=== PATIENT | male | born 1950 | race Two or more races ===

== ENCOUNTER 2016-04-06 05:23 | Inpatient (IN) | payer OTHER ==
[~2016-04-06] VITALS: Ht 175.3 cm; Wt 113.6 kg
[2016-04-06] VITALS (24 sets, daily range): BP systolic 96–141; BP diastolic 58–100; PULSE 69–110; RESP 10–24; Ht 175.3 cm; Wt 113.6 kg
[~2016-04-06 05:23] MED LIST: AMLO5TAB4 PO; ATEN-51 PO; ATOR40TA68 PO; OMEP20CA16 PO; TAMS0.4C2 PO
[2016-04-06] MEDS: LACTATED RINGER'S 1,000 ML IV* SCH (06:30)
[2016-04-06] MEDS ORDERED: CEFAZOLIN 2 GM/50 ML (PMX) 50 ML IVPB SCH (06:30)
[2016-04-06] MEDS ORDERED: BUPIVACAINE 0.25%/EPI (SDV) 30 ML INJ ONE ×2 (07:20→10:49)
[2016-04-06] MEDS ORDERED: BUPIVACAINE 0.25% (MPF) 30 ML INJ ONE (07:20)
[2016-04-06] MEDS ORDERED: GELATIN SIZE 100 SPONGE ONE (07:20)
[2016-04-06] MEDS ORDERED: POLYMYXIN/BACITRACIN 1L IRRIG ONE (07:21)
[2016-04-06] MEDS ORDERED: THROMBIN 5000 UNIT VIAL ONE ×2 (07:21→12:00)
[2016-04-06] MEDS ORDERED: FENTAnyl 50 MCG/ML VIAL ONE ×2 (07:59→14:53)
[2016-04-06] MEDS ORDERED: SUCCINYLCHOLINE CHLORIDE 100 MG/5 ML SYG IV ONE (09:41)
[2016-04-06] MEDS ORDERED: PROPOFOL 40 ML ONE (09:41)
[2016-04-06] MEDS ORDERED: LIDOCAINE 2% (SDV) 5 ML INJ ONE (09:41)
[2016-04-06] MEDS ORDERED: ROCURONIUM 50 MG INJ ONE (09:41)
[2016-04-06] MEDS ORDERED: NEOSTIGMINE 3 MG/3 ML SYRINGE ONE (09:41)
[2016-04-06] MEDS ORDERED: GLYCOPYRROLATE 1 MG INJ ONE (09:41)
[2016-04-06] MEDS ORDERED: CEFAZOLIN 1 GM INJ ONE (09:41)
[2016-04-06] MEDS ORDERED: DIPHENHYDRAMINE 50 MG INJ IV PRN (11:00)
[2016-04-06] MEDS ORDERED: METOCLOPRAMIDE 10 MG INJ IV PRN (11:00)
[2016-04-06] MEDS ORDERED: ONDANSETRON 4 MG INJ IV PRN ×2 (11:00→16:30)
[2016-04-06] MEDS ORDERED: FENTAnyl 50 MCG/ML VIAL IV PRN (11:00)
[2016-04-06] MEDS ORDERED: HYDROmorphONE (0.2 MG/ML) 10ML SYG IV PRN ×2 (11:00)
[2016-04-06] MEDS ORDERED: MEPERIDINE 25 MG INJ IV PRN (11:00)
[2016-04-06] MEDS ORDERED: THROMBIN(HUM PLAS)/FIBRINOG/CA 5 ML VIAL TOP ONE (12:22)
[2016-04-06] MEDS: FENTAnyl 50 MCG/ML VIAL IV PRN ×2 (16:00→16:23)
[2016-04-06] MEDS: HYDROmorphONE (0.2 MG/ML) 10ML SYG IV PRN ×3 (16:02→16:28)
--- NOTE | 2016-04-06 16:21 | RADRPT ---
PROCEDURE: Intraoperative imaging of the lumbar spine with fluoroscopy. CLINICAL INDICATION: Back pain. Intraoperative. TECHNIQUE: 20 images of the lumbar spine were obtained in the operating room with an image intensi fier. No radiologist was in attendance. COMPARISON: No prior study is available for comparison. FINDINGS: Images demonstrate surgical instruments overlying the lower lumbar spine. IMPRESSION: 1. Intraoperative imaging of the lumbar spine. RPTAT: QQ .Jair Galindo MD, MD Date Time Electronically viewed and signed by .Jair Galindo MD, on 04/06/2016 16:21 .R/
[2016-04-06 16:22] LABS: ADD UMIC YES; URINE BILIRUBIN (Dip) NEGATIVE (NEGATIVE); URINE BLOOD (Dip) TRACE (NEGATIVE); URINE COLOR YELLOW (YELLOW); URINE GLUCOSE (Dip) NEGATIVE (NEGATIVE); URINE KETONES (Dip) NEGATIVE (NEGATIVE); URINE LEUKOCYTE ESTERASE (Dip) NEGATIVE (NEGATIVE); URINE NITRITE (Dip) NEGATIVE (NEGATIVE); URINE TOTAL PROTEIN (Dip) 1+ (NEGATIVE); URINE UROBILINOGEN (Dip) 0.2 E.U./dL (0.1-1.0)
[2016-04-06] MEDS ORDERED: HYDROCODONE/APAP (5/325) TAB PO PRN (16:30)
[2016-04-06] MEDS ORDERED: NALOXONE (0.4 MG/ML) INJ IV PRN (16:30)
[2016-04-06] MEDS ORDERED: PROCHLORPERAZINE 10 MG TAB PO PRN (16:30)
[2016-04-06] MEDS ORDERED: HYDROmorphONE 0.2 MG/ML PCA IV SCH ×2 (16:30→19:00)
[2016-04-06] MEDS ORDERED: NACL 0.9% 3 ML SYG IV SCH (16:30)
[2016-04-06 16:43] LABS: URINE RBCS 0-2 /HPF (0)
[2016-04-06 16:44] LABS: BACTERIA,URINE RARE
--- NOTE | 2016-04-06 17:56 | PN ---
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, reinforced need to push the button moves all four, lungs clear, heart rate is ok Musculoskeletal: back pain, bone/joint pain, neck pain, no complaints, other, restricted range of motion, swelling Exam/Review of Systems Vital Signs Vitals Vital Signs Date Time Temp Pulse Resp B/P Pulse Ox O2 Delivery O2 Flow Rate FiO2 04/06/16 16:58 94 14 122/72 95 Nasal Cannula 3.0 04/06/16 15:50 98.4 Results Results 24 hrs Laboratory Tests Test 04/06/16 15:53 Urine Bacteria RARE Urine Bilirubin NEGATIVE Urine Clarity CLEAR Urine Color YELLOW Urine Epithelial Cells OCCASIONAL Urine Glucose NEGATIVE Urine Hemoglobin TRACE Urine Ketones NEGATIVE Urine Leukocyte Esterase NEGATIVE Urine Microscopic RBC 0-2 Urine Microscopic WBC NONE SEEN Urine Nitrite NEGATIVE Urine Specific Home >=1.030 H Urine Total Protein 1+ H Urine Urobilinogen 0.2 E.U./dL Urine pH 6.0 Medications Medications Current Medications Lactated Ringer's (Lr) 1,000 ml @ 25 mls/hr Q24H IV* ; Start 04/06/16 at 06:30 Acetaminophen/ Hydrocodone Bitart ([place] (5/325)) 1 tab Q4H PRN PO PAIN LEVEL 1 -5; Start 04/06/16 at 16:30; Status Future Hold Acetaminophen/ Hydrocodone Bitart 2 tab 2 tab Q4H PRN PO PAIN LEVEL 6-10; Start 04/06/16 at 16:30; Status Future Hold Cefazolin Sodium (Ancef 1 Gm/50 ml (Pmx)) 50 ml @ 100 mls/hr Q6 IVPB ; Start at 18:00; Stop 04/07/16 at 12:29 Prochlorperazine (Compazine) 10 mg Q4H PRN PO NAUSEA AND/OR VOMITING; Start at 16:30 Ondansetron HCl (Zofran Inj) 4 mg Q6H PRN IV NAUSEA AND/OR VOMITING; Start at 16:30 Al Hydrox/Mg Hydrox/Simethicone (Mag-Al Plus) 15 ml Q4H PRN PO CONSTIPATION; Start 04/06/16 at 16:30 Docusate Sodium (Colace) 100 mg BID PO ; Start 04/07/16 at 09:00 Hydromorphone HCl (Dilaudid RADAR SYSTEMS ENGINEER) Q4PCA IV Last administered on 04/06/16t 16:32 ; Admin Dose 6 MG; Start 04/06/16 at 16:30 Naloxone HCl (Narcan) 0.2 mg Q2M PRN IV RR 8 BREATHS/MIN OR LESS; Start at 16:30 TROY MURPHY MD Apr 06, 2016 17:56
--- NOTE | 2016-04-06 18:06 | PN ---
Date/Time of Note Date/Time of Note DATE: 04/06/16 TIME: 18:03 Assessment/Plan VTE Prophylaxis VTE Prophylaxis Intervention: anti-embolic stocking Lines/Catheters IV Catheter Type (from Nrsg): Peripheral IV Urinary Cath still in place: Yes Subjective 24 Hr Interval Summary Free Text/Dictation note he has a porcine aortic valve without current CARDIAC SX, ATENOLOL continued, restart amlodipine if bp is high given preop antibiotics, which are continuing Exam/Review of Systems Vital Signs Vitals Vital Signs Date Time Temp Pulse Resp B/P Pulse Ox O2 Delivery O2 Flow Rate FiO2 04/06/16 16:58 94 14 122/72 95 Nasal Cannula 3.0 04/06/16 15:50 98.4 Results Results 24 hrs Laboratory Tests Test 04/06/16 15:53 Urine Bacteria RARE Urine Bilirubin NEGATIVE Urine Clarity CLEAR Urine Color YELLOW Urine Epithelial Cells OCCASIONAL Urine Glucose NEGATIVE Urine Hemoglobin TRACE Urine Ketones NEGATIVE Urine Leukocyte Esterase NEGATIVE Urine Microscopic RBC 0-2 Urine Microscopic WBC NONE SEEN Urine Nitrite NEGATIVE Urine Specific [place] >=1.030 H Urine Total Protein 1+ H Urine Urobilinogen 0.2 E.U./dL Urine pH 6.0 Medications Medications Current Medications Lactated Ringer's (Lr) 1,000 ml @ 25 mls/hr Q24H IV* ; Start 04/06/16 at 06:30 Acetaminophen/ Hydrocodone Bitart ([place] (5/325)) 1 tab Q4H PRN PO PAIN LEVEL 1 -5; Start 04/06/16 at 16:30; Status Future Hold Acetaminophen/ Hydrocodone Bitart 2 tab 2 tab Q4H PRN PO PAIN LEVEL 6-10; Start 04/06/16 at 16:30; Status Future Hold Cefazolin Sodium (Ancef 1 Gm/50 ml (Pmx)) 50 ml @ 100 mls/hr Q6 IVPB ; Start at 18:00; Stop 04/07/16 at 12:29 Prochlorperazine (Compazine) 10 mg Q4H PRN PO NAUSEA AND/OR VOMITING; Start at 16:30 Ondansetron HCl (Zofran Inj) 4 mg Q6H PRN IV NAUSEA AND/OR VOMITING; Start at 16:30 Al Hydrox/Mg Hydrox/Simethicone (Mag-Al Plus) 15 ml Q4H PRN PO CONSTIPATION; Start 04/06/16 at 16:30 Docusate Sodium (Colace) 100 mg BID PO ; Start 04/07/16 at 09:00 Hydromorphone HCl (Dilaudid PEGGER) Q4PCA IV Last administered on 04/06/16t 16:32 ; Admin Dose 6 MG; Start 04/06/16 at 16:30 Naloxone HCl (Narcan) 0.2 mg Q2M PRN IV RR 8 BREATHS/MIN OR LESS; Start at 16:30 TROY MURPHY MD Apr 06, 2016 18:06
--- NOTE | 2016-04-06 18:43 | EN ---
Date/Time of Note Date/Time of Note DATE: 04/06/16 TIME: 18:36 Event Note Surgery Surgery Event Note PRE OP DIAGNOSIS Spinal stenosis L3-S1 POST OP Same PROCEDURE Minimally invasive Laminectomies, L3-L4 right, L5-S1 right; L4-L5 left, three incisions. SURGEON David MERCHANDISE SHOPPER Clare EBL <25 cc COMPLICATION DUROTOMY SACRAL ROOT. No CSF leakage, but Duragen applied. EHSAN BLANK MD Apr 06, 2016 18:43
[2016-04-06] MEDS: CEFAZOLIN 1 GM/50 ML (PMX) 50 ML IVPB SCH ×2 (18:47→23:46)
--- NOTE | 2016-04-06 19:02 | EN ---
Date/Time of Note Date/Time of Note DATE: 04/06/16 TIME: 18:59 Event Note Surgery Surgery Event Note POST OP CHECK S: C/O PAIN IN LOW BACK O: PT in good spirits. Strength at ankles normal. No headache. A; Stable post op course P: 1. Will consider OOB for PT in AM if no headache. 2. Needs D/C and case management re: a. Patient lives alone and will need home care services when home. b. If unable to go home upon D/C family requesting SNF[facility]rehab in [facility]. EHSAN BLANK MD Apr 06, 2016 19:02
[2016-04-06] MEDS ORDERED: TAMSULOSIN (SR) 0.4 MG CAP PO SCH (21:00)
[2016-04-06] MEDS: HYDROmorphONE 0.2 MG/ML PCA IV SCH (22:24)
[2016-04-06] MEDS: CYCLOBENZAPRINE 10 MG TAB PO PRN (23:57)
[2016-04-07] MEDS ORDERED: PANTOPRAZOLE (EC) 40 MG TAB PO SCH (06:00)
[2016-04-07] MEDS: CEFAZOLIN 1 GM/50 ML (PMX) 50 ML IVPB SCH ×2 (06:00→12:46)
[2016-04-07 06:01] LABS: POTASSIUM 4.1 mmol/L (3.5-5.1)
[2016-04-07 06:10] LABS: CREATININE 0.61 mg/dl (0.61-1.24)
[2016-04-07 06:11] LABS: CALCIUM 8.7 mg/dl (8.4-10.2)
--- NOTE | 2016-04-07 06:19 | CONS ---
Date/Time of Note Date/Time of Note DATE: 04/07/16 TIME: 06:08 Assessment/Plan Assessment/Plan Additional Assessment/Plan IMPRESSION 1. L3-S1 spinal stenosis s/p minimally invasive Laminectomies 2. Headache 3. Hx of Aortic valve replacement 4. Hx of BPH 5. Obesity with BMI of 37 PLAN Cont pain mgmt Cont home meds with adjustment as needed when ok with surgery, start physical therapy check basic labs in am Wt loss advised Consultation Date/Type/Reason Admit Date/Time Apr 06, 2016 at 05:23 Hx of Present Illness Mr. Rcihey is a 65 yo male with hx of BPH, aortic valve replacement, back pain/ injury and L3-S1 spinal stenosis. Today he underwent minimally invasive Laminectomies(see operative report). He was complaining of back pain and headache. Consult was placed for medical mgmt. Currently his pain is being managed with TECHNICAL ASST pump. Denied chest pain, shortness of breath, N/V, fever, chills. . Musculoskeletal: back pain, bone/joint pain, neck pain, no complaints, other, restricted range of motion, swelling Social History Smoking Status: Former smoker Exam/Review of Systems Vital Signs Vitals Vital Signs Date Time Temp Pulse Resp B/P Pulse Ox O2 Delivery O2 Flow Rate FiO2 04/06/16 23:49 98.1 100 18 141/86 96 04/06/16 19:50 Nasal Cannula 2.0 Intake and Output 04/06/16 04/06/16 04/07/16 14:53 22:53 06:53 Intake Total 1800 ml Output Total 400 ml Balance 1400 ml Exam Constitutional: alert, obese, oriented Head: atraumatic, normocephalic Eyes: EOMI, PERRL Neck: supple Respiratory: clear to auscultation, normal air movement Cardiovascular: nl pulses, regular rate and rhythm Gastrointestinal: non-tender, soft Extremities: normal pulses Results Results 24 hrs Laboratory Tests Test 04/06/16 15:53 Urine Bacteria RARE Urine Bilirubin NEGATIVE Urine Clarity CLEAR Urine Color YELLOW Urine Epithelial Cells OCCASIONAL Urine Glucose NEGATIVE Urine Hemoglobin TRACE Urine Ketones NEGATIVE Urine Leukocyte Esterase NEGATIVE Urine Microscopic RBC 0-2 Urine Microscopic WBC NONE SEEN Urine Nitrite NEGATIVE Urine Specific [place] >=1.030 H Urine Total Protein 1+ H Urine Urobilinogen 0.2 E.U./dL Urine pH 6.0 Medications Medications Current Medications Lactated Ringer's (Lr) 1,000 ml @ 25 mls/hr Q24H IV* ; Start 04/06/16 at 06:30 Acetaminophen/ Hydrocodone Bitart ([place] (5/325)) 1 tab Q4H PRN PO PAIN LEVEL 1 -5; Start 04/06/16 at 16:30; Status Future Hold Acetaminophen/ Hydrocodone Bitart 2 tab 2 tab Q4H PRN PO PAIN LEVEL 6-10; Start 04/06/16 at 16:30; Status Future Hold Cefazolin Sodium (Ancef 1 Gm/50 ml (Pmx)) 50 ml @ 100 mls/hr Q6 IVPB Last administered on 04/06/16 23:46; Admin Dose 100 MLS/HR; Start 04/06/16 at 18:00 ; Stop 04/07/16 at 12:29 Prochlorperazine (Compazine) 10 mg Q4H PRN PO NAUSEA AND/OR VOMITING; Start at 16:30 Ondansetron HCl (Zofran Inj) 4 mg Q6H PRN IV NAUSEA AND/OR VOMITING; Start at 16:30 Al Hydrox/Mg Hydrox/Simethicone (Mag-Al Plus) 15 ml Q4H PRN PO CONSTIPATION; Start 04/06/16 at 16:30 Docusate Sodium (Colace) 100 mg BID PO ; Start 04/07/16 at 09:00 Naloxone HCl (Narcan) 0.2 mg Q2M PRN IV RR 8 BREATHS/MIN OR LESS; Start at 16:30 Pantoprazole (Protonix Tab) 40 mg DAILY@06 PO ; Start 04/07/16 at 06:00 Atenolol (Tenormin) 25 mg DAILY PO ; Start 04/07/16 at 09:00 Tamsulosin HCl (Flomax) 0.4 mg HS PO Last administered on 04/06/16 21:15; Admin Dose 0.4 MG; Start 04/06/16 at 21:00 Hydromorphone HCl (Dilaudid TECHNICAL ASST) Q4PCA IV Last administered on 04/06/16 22:24 ; Admin Dose 6 MG; Start 04/06/16 at 19:00 Cyclobenzaprine HCl (Flexeril) 10 mg TID PRN PO MUSCLE SPASMS Last administered on 1/16/17at 23:57; Admin Dose 10 MG; Start 04/06/16 at 22:00 ALICIA HOLT MD Apr 07, 2016 06:11
[2016-04-07 06:24] LABS: HEMATOCRIT 38.5 % (42.0-52.0); HEMOGLOBIN 13.1 g/dl (14.0-18.0)
[2016-04-07] MEDS: LACTATED RINGER'S 1,000 ML IV* SCH (06:30)
[2016-04-07 08:22] VITALS: BP 135/81; RESP 18
[2016-04-07] MEDS: DOCUSATE SODIUM 100 MG CAP PO SCH ×2 (08:53→21:31)
[2016-04-07] MEDS: ATENOLOL 25 MG TAB PO SCH (08:53)
[2016-04-07] MEDS: AMLODIPINE 5 MG TAB PO SCH (08:54)
[2016-04-07] MEDS: CYCLOBENZAPRINE 10 MG TAB PO PRN (08:54)
[2016-04-07] MEDS ORDERED: NON-FORMULARY/PATIENT OWN MED (Omeprazole* 20 MG) PO SCH (09:00)
[2016-04-07] MEDS: HYDROmorphONE 0.2 MG/ML PCA IV SCH ×2 (09:01→20:39)
[2016-04-07 20:51] VITALS: BP 138/74; RESP 20
[2016-04-07] MEDS ORDERED: VITAMIN A & D 5 GM OINT PACKET TOP ONE (21:10)
[2016-04-07] MEDS: TAMSULOSIN (SR) 0.4 MG CAP PO SCH (21:32)
[2016-04-07] MEDS: ATORVASTATIN 40 MG TAB PO SCH (21:32)
[2016-04-08] MEDS: PANTOPRAZOLE (EC) 40 MG TAB PO SCH (05:22)
[2016-04-08] MEDS: LACTATED RINGER'S 1,000 ML IV* SCH (05:22)
[2016-04-08 08:20] VITALS: BP 138/68; RESP 20
[2016-04-08] MEDS: HYDROmorphONE 0.2 MG/ML PCA IV SCH (08:31)
[2016-04-08] MEDS: DOCUSATE SODIUM 100 MG CAP PO SCH ×2 (08:31→19:53)
[2016-04-08] MEDS: AMLODIPINE 5 MG TAB PO SCH (08:32)
[2016-04-08] MEDS: ATENOLOL 25 MG TAB PO SCH (08:32)
[2016-04-08] MEDS: AL HYDROX/MG HYDROX/SIMETH 30 ML CUP PO PRN (14:24)
--- NOTE | 2016-04-08 14:33 | PN ---
Date/Time of Note Date/Time of Note DATE: 04/08/16 TIME: 14:28 Assessment/Plan VTE Prophylaxis VTE Prophylaxis Intervention: SCD's Lines/Catheters IV Catheter Type (from Nrsg): Peripheral IV Urinary Cath still in place: Yes Reason Cath still needed: other (indicate) Assessment/Plan Assessment/Plan 1. L3-S1 spinal stenosis s/p minimally invasive Laminectomies, stable, follow up with surgery and PT 2. s/p Aortic valve replacement, bioprosthetic, stable 3. Epigastric pain, protonix 4. Hx of BPH 5. Obesity with BMI of 3 Subjective 24 Hr Interval Summary Free Text/Dictation epigastric pain with some nausea, no vomiting Exam/Review of Systems Vital Signs Vitals Vital Signs Date Time Temp Pulse Resp B/P Pulse Ox O2 Delivery O2 Flow Rate FiO2 04/08/16 13:46 18 04/08/16 08:20 98.0 91 138/68 100 04/07/16 20:00 Nasal Cannula 2.0 Intake and Output 04/07/16 04/07/16 04/08/16 15:00 23:00 07:00 Intake Total 490 ml 700 ml Output Total 560 ml 1000 ml Balance -70 ml -300 ml Exam Constitutional: alert, oriented, well developed Psych: nl mood/affect, no complaints Head: atraumatic, normocephalic Eyes: EOMI, PERRL, nl conjunctiva, nl lids, nl sclera ENMT: mucosa pink and moist, nl external ears & nose, nl lips & teeth, nl nasal mucosa & septum Neck: non-tender, supple Respiratory: clear to auscultation, normal air movement Cardiovascular: nl pulses, regular rate and rhythm, No S3, No S4, No bruits, No diastolic murmur, No edema, No gallop, No irregular rhythm, No jugular venous distention (JVD), No murmurs/extra sounds, No rub, No systolic murmur Gastrointestinal: nl liver, spleen, soft, tender (mild epigastric tenderness), No ascites, No bowel sounds, No distended, No firm, No hepatomegaly, No mass , No rebound or guarding, No splenomegaly, No surgical scars Musculoskeletal: nl extremities to inspection Extremities: normal pulses, No calf tenderness, No clubbing, No cyanosis, No edema, No palpable cord, No pitting pedal edema, No tenderness Neurological: ASE MASTER MECHANIC II-XII intact, nl mental status, nl speech, nl strength Skin: nl turgor, rash or lesions Lymph: nl lymph nodes Results Result Diagram: 04/07/1641904/07/16419 Medications Medications Current Medications Lactated Ringer's (Lr) 1,000 ml @ 25 mls/hr Q24H IV* Last administered on 04/08 05:22; Admin Dose 25 MLS/HR; Start 04/06/16 at 06:30 Acetaminophen/ Hydrocodone Bitart ([place] (5/325)) 1 tab Q4H PRN PO PAIN LEVEL 1 -5; Start 04/06/16 at 16:30; Status Future Hold Acetaminophen/ Hydrocodone Bitart ([place] (5/325)) 2 tab Q4H PRN PO PAIN LEVEL 6 -10; Start 04/06/16 at 16:30; Status Future Hold Prochlorperazine (Compazine) 10 mg Q4H PRN PO NAUSEA AND/OR VOMITING; Start at 16:30 Ondansetron HCl (Zofran Inj) 4 mg Q6H PRN IV NAUSEA AND/OR VOMITING; Start at 16:30 Al Hydrox/Mg Hydrox/Simethicone (Mag-Al Plus) 15 ml Q4H PRN PO CONSTIPATION Last administered on 04/08/16 14:24; Admin Dose 15 ML; Start 04/06/16 at 16:30 Docusate Sodium (Colace) 100 mg BID PO Last administered on 04/08/16 08:31; Admin Dose 100 MG; Start 04/07/16 at 09:00 Naloxone HCl (Narcan) 0.2 mg Q2M PRN IV RR 8 BREATHS/MIN OR LESS; Start at 16:30 Atenolol (Tenormin) 25 mg DAILY PO Last administered on 04/08/16 08:32; Admin Dose 25 MG; Start 04/07/16 at 09:00 Hydromorphone HCl (Dilaudid SUPERVISOR GARMENT MANUFACTURING) Q4PCA IV Last administered on 04/08/16 08:31 ; Admin Dose 6 MG; Start 04/06/16 at 19:00 Cyclobenzaprine HCl (Flexeril) 10 mg TID PRN PO MUSCLE SPASMS Last administered on 04/07/16 08:54; Admin Dose 10 MG; Start 04/06/16 at 22:00 Amlodipine Besylate (Norvasc) 5 mg DAILY PO Last administered on 04/08/16 08: 32; Admin Dose 5 MG; Start 04/07/16 at 09:00 Atorvastatin Calcium (Lipitor) 40 mg QHS PO Last administered on 04/07/16 21: 32; Admin Dose 40 MG; Start 04/07/16 at 21:00 Pantoprazole (Protonix Tab) 40 mg DAILY@06 PO Last administered on 04/08/16 05 :22; Admin Dose 40 MG; Start 04/08/16 at 06:00 Tamsulosin HCl (Flomax) 0.8 mg HS PO Last administered on 04/07/16 21:32; Admin Dose 0.8 MG; Start 04/07/16 at 21:00 HARJINDER STAHL MD Apr 08, 2016 14:33
[2016-04-08 14:49] VITALS: BP 127/59; RESP 20
[2016-04-08] MEDS: CALCIUM CARBONATE 500 MG CHEW TAB PO PRN (16:23)
--- NOTE | 2016-04-08 17:16 | PN ---
Date/Time of Note Date/Time of Note DATE: 04/08/16 TIME: 17:11 Assessment/Plan VTE Prophylaxis VTE Prophylaxis Intervention: anti-embolic stocking Lines/Catheters IV Catheter Type (from Nrsg): Peripheral IV Urinary Cath still in place: Yes Subjective 24 Hr Interval Summary Free Text/Dictation third post opday, some nausea and reflux sx says only awake lungs clear, hr ok abd distended poor bs ppi that works is omeprazole, may take from home no bm yet cathete rstill in up with therapy standing only may have ileus from effects of surgery and the narcotics Gastrointestinal: constipation, decreased appetite, nausea, vomiting Exam/Review of Systems Vital Signs Vitals Vital Signs Date Time Temp Pulse Resp B/P Pulse Ox O2 Delivery O2 Flow Rate FiO2 04/08/16 14:49 98.4 83 20 127/59 95 04/07/16 20:00 Nasal Cannula 2.0 Intake and Output 04/07/16 04/07/16 04/08/16 14:59 22:59 06:59 Intake Total 490 ml 700 ml Output Total 560 ml 1000 ml Balance -70 ml -300 ml Results Result Diagram: 04/07/16 0420 04/07/16 0420 Medications Medications Current Medications Lactated Ringer's (Lr) 1,000 ml @ 25 mls/hr Q24H IV* Last administered on 04/08 05:22; Admin Dose 25 MLS/HR; Start 04/06/16 at 06:30 Acetaminophen/ Hydrocodone Bitart ([place] (5/325)) 1 tab Q4H PRN PO PAIN LEVEL 1 -5; Start 04/06/16 at 16:30; Status Future Hold Acetaminophen/ Hydrocodone Bitart ([place] (5/325)) 2 tab Q4H PRN PO PAIN LEVEL 6 -10; Start 04/06/16 at 16:30; Status Future Hold Prochlorperazine (Compazine) 10 mg Q4H PRN PO NAUSEA AND/OR VOMITING; Start at 16:30 Ondansetron HCl (Zofran Inj) 4 mg Q6H PRN IV NAUSEA AND/OR VOMITING; Start at 16:30 Al Hydrox/Mg Hydrox/Simethicone (Mag-Al Plus) 15 ml Q4H PRN PO CONSTIPATION Last administered on 04/08/16 14:24; Admin Dose 15 ML; Start 04/06/16 at 16:30 Docusate Sodium (Colace) 100 mg BID PO Last administered on 04/08/16 08:31; Admin Dose 100 MG; Start 04/07/16 at 09:00 Naloxone HCl (Narcan) 0.2 mg Q2M PRN IV RR 8 BREATHS/MIN OR LESS; Start at 16:30 Atenolol (Tenormin) 25 mg DAILY PO Last administered on 04/08/16 08:32; Admin Dose 25 MG; Start 04/07/16 at 09:00 Hydromorphone HCl (Dilaudid ARMATURE CONNECTOR) Q4PCA IV Last administered on 04/08/16 08:31 ; Admin Dose 6 MG; Start 04/06/16 at 19:00 Cyclobenzaprine HCl (Flexeril) 10 mg TID PRN PO MUSCLE SPASMS Last administered on 04/07/16 08:54; Admin Dose 10 MG; Start 04/06/16 at 22:00 Amlodipine Besylate (Norvasc) 5 mg DAILY PO Last administered on 04/08/16 08: 32; Admin Dose 5 MG; Start 04/07/16 at 09:00 Atorvastatin Calcium (Lipitor) 40 mg QHS PO Last administered on 04/07/16 21: 32; Admin Dose 40 MG; Start 04/07/16 at 21:00 Pantoprazole (Protonix Tab) 40 mg DAILY@06 PO Last administered on 04/08/16 05 :22; Admin Dose 40 MG; Start 04/08/16 at 06:00 Tamsulosin HCl (Flomax) 0.8 mg HS PO Last administered on 04/07/16 21:32; Admin Dose 0.8 MG; Start 04/07/16 at 21:00 Calcium Carbonate (Tums) 500 mg Q8 PRN PO HEARTBURN Last administered on 16:23; Admin Dose 500 MG; Start 04/08/16 at 16:00 TROY MURPHY MD Apr 08, 2016 17:16
[2016-04-08] MEDS ORDERED: METOCLOPRAMIDE 10 MG INJ IV ONE (17:30)
--- NOTE | 2016-04-08 17:41 | EN ---
Date/Time of Note Date/Time of Note DATE: 04/08/16 TIME: 17:40 Event Note Surgery Surgery Event Note Date/Time of Note Date/Time of Note DATE: 04/08/16 TIME: 09:07 Event Note Surgery Surgery Event Note POD 2 ORTHOPAEDIC SPINE Seen with RN S: Still c/o back ache, without leg pain. No headache. No other complaints. O: Alert, oriented, minimal distress. Eating sollid breakfast. Ankle motor strength normal. Dressing dry, intact, minimal stain A: Satisfactory post op course. Mobilization slightly slow but as expected for 3 level decompression P: 1. PT attempt ambulation. 2. Medical team: Continues to require pain meds and antibiotics re valve as long as medical team says indicated. 3. ELOS 48 hours. 4. Possible dispo to rehab facility near home ([place]) EHSAN STANTON MD Apr 08, 2016 09:12 EHSAN STANTON MD Apr 08, 2016 17:40
[2016-04-08] MEDS ORDERED: VITAMIN A & D 5 GM OINT PACKET TOP ONE (18:59)
[2016-04-08] MEDS: [UNRECOGNIZED DRUG - REMARK] XX SCH (19:00)
[2016-04-08 19:34] VITALS: BP 135/65; RESP 22
[2016-04-08] MEDS: CYCLOBENZAPRINE 10 MG TAB PO PRN (19:53)
[2016-04-08] MEDS: TAMSULOSIN (SR) 0.4 MG CAP PO SCH (19:53)
[2016-04-08] MEDS: ATORVASTATIN 40 MG TAB PO SCH (19:53)
[2016-04-09] MEDS: HYDROmorphONE 0.2 MG/ML PCA IV SCH (00:47)
[2016-04-09] MEDS: [UNRECOGNIZED DRUG - REMARK] XX SCH ×2 (02:12→10:46)
[2016-04-09] MEDS: PANTOPRAZOLE (EC) 40 MG TAB PO SCH (04:58)
[2016-04-09] MEDS: CYCLOBENZAPRINE 10 MG TAB PO PRN ×2 (04:58→14:02)
[2016-04-09 05:25] LABS: BASOPHILS % 0.2 % (0.0-2.0); EOSINOPHILS # 0.1 10^3/ul (0.0-0.5); EOSINOPHILS % 0.7 % (0.0-7.0); HEMATOCRIT 31.7 % (42.0-52.0); HEMOGLOBIN 10.9 g/dl (14.0-18.0); LYMPHOCYTES % 10.9 % (15.0-51.0); MEAN CORPUSCULAR HEMOGLOBIN 31.1 pg (29.0-33.0); MEAN CORPUSCULAR HGB CONC 34.5 g/dl (32.0-37.0); MEAN CORPUSCULAR VOLUME 90.1 fl (82.0-101.0); MEAN PLATELET VOLUME 8.5 fl (7.4-10.4); MONOCYTE # 0.7 10^3/ul (0.3-0.9); NEUTROPHIL # 7.6 10^3/ul (1.6-7.5); NEUTROPHILS % 81.2 % (39.0-77.0); PLATELET COUNT 134 10^3/UL (140-440); RED BLOOD COUNT 3.52 10^6/ul (4.70-6.10); RED CELL DISTRIBUTION WIDTH 12.8 % (11.5-14.5); UNCORRECTED WBC 9.4 10^3/ul (4.8-10.8); WHITE BLOOD COUNT 9.4 10^3/ul (4.8-10.8)
[2016-04-09 05:38] LABS: CONDITION 1
[2016-04-09 05:47] LABS: POTASSIUM 3.8 mmol/L (3.5-5.1)
[2016-04-09 05:49] LABS: CREATININE 0.52 mg/dl (0.61-1.24)
[2016-04-09 05:51] LABS: CALCIUM 8.4 mg/dl (8.4-10.2)
[2016-04-09] MEDS: LACTATED RINGER'S 1,000 ML IV* SCH (06:30)
[2016-04-09 08:48] VITALS: BP 129/70; RESP 21
[2016-04-09] MEDS: DOCUSATE SODIUM 100 MG CAP PO SCH ×2 (08:53→20:21)
[2016-04-09] MEDS: ATENOLOL 25 MG TAB PO SCH (08:54)
[2016-04-09] MEDS: AMLODIPINE 5 MG TAB PO SCH (08:54)
[2016-04-09] MEDS ORDERED: OMEPRAZOLE 20 MG PO SCH (09:00)
[2016-04-09] MEDS ORDERED: OXYCODONE/ACETAMINOPHEN (10/325) TAB PO PRN (11:30)
--- NOTE | 2016-04-09 13:12 | PN ---
Date/Time of Note Date/Time of Note DATE: 04/09/16 TIME: 13:10 Assessment/Plan Lines/Catheters IV Catheter Type (from Nrsg): Peripheral IV Victor in Place (from Nrsg): Yes Subjective 24 Hr Interval Summary Patient is progressing slowly postoperatively. He continues to report intense low back pain, he states his legs are feeling better. Neurovascular structures are intact. Discussed the importance of weaning off of his MATTING PRESS TENDER, we will wean off his MATTING PRESS TENDER and start PO pain meds . Patient also reports constipation, weaning off the MATTING PRESS TENDER will help this. I did order a bowel program. I asked telephonic case manager to arrange for short-term rehab postoperatively due to his slow progress. We will also remove Victor catheter when he is up ambulating. His hemoglobin is 10.9 today. Exam/Review of Systems Vital Signs Vitals Vital Signs Date Time Temp Pulse Resp B/P Pulse Ox O2 Delivery O2 Flow Rate FiO2 04/09/16 08:48 98.4 90 21 129/70 95 04/07/16 20:00 Nasal Cannula 2.0 Intake and Output 04/08/16 04/08/16 04/09/16 15:00 23:00 07:00 Intake Total 134 ml 1200 ml Output Total 450 ml 600 ml Balance -316 ml 600 ml Results Result Diagram: 04/09/16 0445 04/09/16 0445 BLAKE BATISTA Apr 09, 2016 13:12
[2016-04-09] MEDS: SENNA/DOCUSATE NA (8.6MG/50MG) TAB PO PRN (14:02)
--- NOTE | 2016-04-09 14:15 | PN ---
Date/Time of Note Date/Time of Note DATE: 04/09/16 TIME: 14:13 Assessment/Plan VTE Prophylaxis VTE Prophylaxis Intervention: SCD's Lines/Catheters IV Catheter Type (from Nrsg): Peripheral IV Urinary Cath still in place: Yes Reason Cath still needed: urinary retention Assessment/Plan Assessment/Plan 1. L3-S1 spinal stenosis s/p minimally invasive Laminectomies, stable, follow up with surgery and PT 2. s/p Aortic valve replacement, bioprosthetic, stable 3. Epigastric pain, better on protonix 4. Hx of BPH 5. Obesity with BMI of 3 Subjective 24 Hr Interval Summary Free Text/Dictation back pain, not able to get out of bed, wants to keep Victor Exam/Review of Systems Vital Signs Vitals Vital Signs Date Time Temp Pulse Resp B/P Pulse Ox O2 Delivery O2 Flow Rate FiO2 04/09/16 08:48 98.4 90 21 129/70 95 04/07/16 20:00 Nasal Cannula 2.0 Intake and Output 04/08/16 04/08/16 04/09/16 15:00 23:00 07:00 Intake Total 134 ml 1200 ml Output Total 450 ml 600 ml Balance -316 ml 600 ml Exam Constitutional: alert, oriented, well developed Psych: nl mood/affect, no complaints Head: atraumatic, normocephalic Eyes: EOMI, PERRL, nl conjunctiva, nl lids, nl sclera ENMT: mucosa pink and moist, nl external ears & nose, nl lips & teeth, nl nasal mucosa & septum Neck: non-tender, supple Respiratory: clear to auscultation, normal air movement, No congested cough, No crackles/rales, No diminished breath sounds, No intercostal retraction, No labored breathing, No respirations, No tactile fremitus, No wheezing Cardiovascular: nl pulses, regular rate and rhythm, No S3, No S4, No bruits, No diastolic murmur, No edema, No gallop, No irregular rhythm, No jugular venous distention (JVD), No murmurs/extra sounds, No rub, No systolic murmur Gastrointestinal: nl liver, spleen, non-tender, soft, No ascites, No bowel sounds, No distended, No firm, No hepatomegaly, No mass , No rebound or guarding, No splenomegaly, No surgical scars, No tender Musculoskeletal: nl extremities to inspection Extremities: normal pulses, other, No calf tenderness, No clubbing, No cyanosis, No edema, No palpable cord, No pitting pedal edema, No tenderness 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, nl mental status, nl speech, nl strength Skin: nl turgor, rash or lesions Lymph: nl lymph nodes Results Result Diagram: 04/09/165 04/09/165 Results 24 hrs Laboratory Tests Test 04/09/16 04:45 Anion Gap 12 Basophils # 0.0 Basophils % 0.2 Blood Urea Nitrogen 13 Calcium Level 8.4 Carbon Dioxide Level 34 H Chloride Level 92 L Creatinine 0.52 L Eosinophils # 0.1 Eosinophils % 0.7 Glucose Level 116 Hematocrit 31.7 L Hemoglobin 10.9 L Lymphocytes # 1.0 Lymphocytes % 10.9 L Mean Corpuscular Hemoglobin 31.1 Mean Corpuscular Hemoglobin Concent 34.5 Mean Corpuscular Volume 90.1 Mean Platelet Volume 8.5 Monocytes # 0.7 Monocytes % 7.0 Neutrophils # 7.6 H Neutrophils % 81.2 H Nucleated Red Blood Cells # 0.0 Nucleated Red Blood Cells % 0.0 Platelet Count 134 L Potassium Level 3.8 Red Blood Count 3.52 L Red Cell Distribution Width 12.8 Sodium Level 134 L White Blood Count 9.4 Medications Medications Current Medications Lactated Ringer's (Lr) 1,000 ml @ 25 mls/hr Q24H IV* Last administered on 04/08t 05:22; Admin Dose 25 MLS/HR; Start 04/06/16 at 06:30 Acetaminophen/ Hydrocodone Bitart ([place] (5/325)) 1 tab Q4H PRN PO PAIN LEVEL 1 -5; Start 04/06/16 at 16:30; Status Future hold Acetaminophen/ Hydrocodone Bitart ([place] (5/325)) 2 tab Q4H PRN PO PAIN LEVEL 6 -10; Start 04/06/16 at 16:30; Status Future hold Prochlorperazine (Compazine) 10 mg Q4H PRN PO NAUSEA AND/OR VOMITING; Start at 16:30 Ondansetron HCl (Zofran Inj) 4 mg Q6H PRN IV NAUSEA AND/OR VOMITING; Start at 16:30 Al Hydrox/Mg Hydrox/Simethicone (Mag-Al Plus) 15 ml Q4H PRN PO CONSTIPATION Last administered on 04/08/16 14:24; Admin Dose 15 ML; Start 04/06/16 at 16:30 Docusate Sodium (Colace) 100 mg BID PO Last administered on 04/09/16 08:53; Admin Dose 100 MG; Start 04/07/16 at 09:00 Naloxone HCl (Narcan) 0.2 mg Q2M PRN IV RR 8 BREATHS/MIN OR LESS; Start at 16:30 Atenolol (Tenormin) 25 mg DAILY PO Last administered on 04/09/16 08:54; Admin Dose 25 MG; Start 04/07/16 at 09:00 Cyclobenzaprine HCl (Flexeril) 10 mg TID PRN PO MUSCLE SPASMS Last administered on 04/09/16 14:02; Admin Dose 10 MG; Start 04/06/16 at 22:00 Amlodipine Besylate (Norvasc) 5 mg DAILY PO Last administered on 04/09/16 08: 54; Admin Dose 5 MG; Start 04/07/16 at 09:00 Atorvastatin Calcium (Lipitor) 40 mg QHS PO Last administered on 04/08/16 19: 53; Admin Dose 40 MG; Start 04/07/16 at 21:00 Pantoprazole (Protonix Tab) 40 mg DAILY@06 PO Last administered on 04/09/16 04 :58; Admin Dose 40 MG; Start 04/08/16 at 06:00 Tamsulosin HCl (Flomax) 0.8 mg HS PO Last administered on 04/08/16 19:53; Admin Dose 0.8 MG; Start 04/07/16 at 21:00 Calcium Carbonate (Tums) 500 mg Q8 PRN PO HEARTBURN Last administered on 16:23; Admin Dose 500 MG; Start 04/08/16 at 16:00 Oxycodone/ Acetaminophen (Endocet (10/ 325)) 1 tab Q4H PRN PO PAIN; Start 04/09 at 11:30 Senna/Docusate Sodium (Senokot-S) 1 tab BID PRN PO constipation Last administered on 04/09/16 14:02; Admin Dose 1 TAB; Start 04/09/16 at 13:30 HARJINDER STAHL MD Apr 09, 2016 14:15
[2016-04-09] MEDS: HYDROCODONE/APAP (5/325) TAB PO PRN ×2 (16:36→23:13)
[2016-04-09 19:54] VITALS: BP 124/70; RESP 20
[2016-04-09] MEDS: TAMSULOSIN (SR) 0.4 MG CAP PO SCH (20:21)
[2016-04-09] MEDS: ATORVASTATIN 40 MG TAB PO SCH (20:21)
[2016-04-10] MEDS: SENNA/DOCUSATE NA (8.6MG/50MG) TAB PO PRN ×2 (01:55→10:18)
[2016-04-10] MEDS: CYCLOBENZAPRINE 10 MG TAB PO PRN ×2 (01:55→20:53)
[2016-04-10] MEDS: HYDROCODONE/APAP (5/325) TAB PO PRN ×5 (05:11→22:09)
[2016-04-10 05:40] LABS: POTASSIUM 3.5 mmol/L (3.5-5.1)
[2016-04-10 05:43] LABS: CREATININE 0.48 mg/dl (0.61-1.24)
[2016-04-10 05:44] LABS: CALCIUM 8.2 mg/dl (8.4-10.2)
[2016-04-10] MEDS ORDERED: OMEPRAZOLE 20 MG PO SCH (06:00)
[2016-04-10] MEDS: LACTATED RINGER'S 1,000 ML IV* SCH (06:30)
[2016-04-10 08:00] VITALS: BP 130/62; RESP 21
[2016-04-10] MEDS: ATENOLOL 25 MG TAB PO SCH (08:42)
[2016-04-10] MEDS: AMLODIPINE 5 MG TAB PO SCH (08:43)
[2016-04-10] MEDS: DOCUSATE SODIUM 100 MG CAP PO SCH ×2 (08:45→20:46)
[2016-04-10] MEDS: OMEPRAZOLE PO SCH (09:02)
--- NOTE | 2016-04-10 13:27 | PN ---
Date/Time of Note Date/Time of Note DATE: 04/10/16 TIME: 13:25 Assessment/Plan Lines/Catheters IV Catheter Type (from Nrsg): Saline Lock Victor in Place (from Nrsg): Yes Subjective 24 Hr Interval Summary Patient is currently working with physical therapy, case management is also assisting with short-term rehab placement. Patient does have home health approved for 2-3 hours a day twice a day once he is eventually discharged home. He just weaned off the CLOTH DOFFER and still reports moderate incisional pain . His vital signs are stable. Exam/Review of Systems Vital Signs Vitals Vital Signs Date Time Temp Pulse Resp B/P Pulse Ox O2 Delivery O2 Flow Rate FiO2 04/10/16 08:00 97.9 85 21 130/62 98 04/07/16 20:00 Nasal Cannula 2.0 Intake and Output 04/09/16 04/09/16 04/10/16 14:59 22:59 06:59 Intake Total 2400 ml 1300 ml Output Total 800 ml 1100 ml Balance 1600 ml 200 ml Results Result Diagram: 04/09/16 0445 04/10/16 0435 BLAKE BATISTA Apr 10, 2016 13:27
--- NOTE | 2016-04-10 13:37 | PN ---
Date/Time of Note Date/Time of Note DATE: 04/10/16 TIME: 13:29 Assessment/Plan VTE Prophylaxis VTE Prophylaxis Intervention: SCD's Lines/Catheters IV Catheter Type (from Nrsg): Saline Lock Assessment/Plan Assessment/Plan 1. 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 s/p Aortic valve replacement, bioprosthetic, stable 3. Epigastric pain, better on protonix 4. Hypertension, stable 5. Dyslipidemia, on statin 6. BPH, on flomax, d/c Victor 7. Obesity with BMI of 3 Subjective 24 Hr Interval Summary Free Text/Dictation low back pain, no weakness or pain on lower extremities. Talked to patient about removing Victor, he agrees Exam/Review of Systems Vital Signs Vitals Vital Signs Date Time Temp Pulse Resp B/P Pulse Ox O2 Delivery O2 Flow Rate FiO2 04/10/16 08:00 97.9 85 21 130/62 98 04/07/16 20:00 Nasal Cannula 2.0 Intake and Output 04/09/16 04/09/16 04/10/16 15:00 23:00 07:00 Intake Total 2400 ml 1300 ml Output Total 800 ml 1100 ml Balance 1600 ml 200 ml Exam Constitutional: alert, oriented, well developed Psych: nl mood/affect, no complaints Head: atraumatic, normocephalic Eyes: EOMI, PERRL, nl conjunctiva, nl lids, nl sclera ENMT: mucosa pink and moist, nl external ears & nose, nl lips & teeth, nl nasal mucosa & septum Neck: non-tender, supple Respiratory: clear to auscultation, normal air movement, No congested cough, No crackles/rales, No diminished breath sounds, No intercostal retraction, No labored breathing, No respirations, No tactile fremitus, No wheezing Cardiovascular: nl pulses, regular rate and rhythm, No S3, No S4, No bruits, No diastolic murmur, No edema, No gallop, No irregular rhythm, No jugular venous distention (JVD), No murmurs/extra sounds, No rub, No systolic murmur Gastrointestinal: nl liver, spleen, non-tender, soft, No ascites, No bowel sounds, No distended, No firm, No hepatomegaly, No mass , No rebound or guarding, No splenomegaly, No surgical scars, No tender Musculoskeletal: nl extremities to inspection Extremities: normal pulses, No calf tenderness, No clubbing, No cyanosis, No edema, No palpable cord, No pitting pedal edema, No tenderness 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, nl mental status, nl speech, nl strength Skin: nl turgor, rash or lesions Lymph: nl lymph nodes Results Result Diagram: 04/09/16 0445 04/10/16 0435 Results 24 hrs Laboratory Tests Test 04/10/16 04:35 Anion Gap 13 Blood Urea Nitrogen 12 Calcium Level 8.2 L Carbon Dioxide Level 31 Chloride Level 91 L Creatinine 0.48 L Glucose Level 107 Potassium Level 3.5 Sodium Level 131 L Medications Medications Current Medications Lactated Ringer's (Lr) 1,000 ml @ 25 mls/hr Q24H IV* Last administered on 04/08 05:22; Admin Dose 25 MLS/HR; Start 04/06/16 at 06:30 Acetaminophen/ Hydrocodone Bitart ([place] (5/325)) 1 tab Q4H PRN PO PAIN LEVEL 1 -5; Start 04/06/16 at 16:30; Status Future hold Acetaminophen/ Hydrocodone Bitart ([place] (5/325)) 2 tab Q4H PRN PO PAIN LEVEL 6 -10 Last administered on 04/10/16 10:18; Admin Dose 2 TAB; Start 04/06/16 at 16 :30; Status Future hold Prochlorperazine (Compazine) 10 mg Q4H PRN PO NAUSEA AND/OR VOMITING; Start at 16:30 Ondansetron HCl (Zofran Inj) 4 mg Q6H PRN IV NAUSEA AND/OR VOMITING; Start at 16:30 Al Hydrox/Mg Hydrox/Simethicone (Mag-Al Plus) 15 ml Q4H PRN PO CONSTIPATION Last administered on 04/08/16 14:24; Admin Dose 15 ML; Start 04/06/16 at 16:30 Docusate Sodium (Colace) 100 mg BID PO Last administered on 04/10/16 08:45; Admin Dose 100 MG; Start 04/07/16 at 09:00 Naloxone HCl (Narcan) 0.2 mg Q2M PRN IV RR 8 BREATHS/MIN OR LESS; Start at 16:30 Atenolol (Tenormin) 25 mg DAILY PO Last administered on 04/10/16 08:42; Admin Dose 25 MG; Start 04/07/16 at 09:00 Cyclobenzaprine HCl (Flexeril) 10 mg TID PRN PO MUSCLE SPASMS Last administered on 04/10/16 01:55; Admin Dose 10 MG; Start 04/06/16 at 22:00 Amlodipine Besylate (Norvasc) 5 mg DAILY PO Last administered on 04/10/16 08: 43; Admin Dose 5 MG; Start 04/07/16 at 09:00 Atorvastatin Calcium (Lipitor) 40 mg QHS PO Last administered on 04/09/16 20: 21; Admin Dose 40 MG; Start 04/07/16 at 21:00 Tamsulosin HCl (Flomax) 0.8 mg HS PO Last administered on 04/09/16 20:21; Admin Dose 0.8 MG; Start 04/07/16 at 21:00 Calcium Carbonate (Tums) 500 mg Q8 PRN PO HEARTBURN Last administered on 16:23; Admin Dose 500 MG; Start 04/08/16 at 16:00 Oxycodone/ Acetaminophen (Endocet (10/ 325)) 1 tab Q4H PRN PO PAIN Last administered on 04/09/16 20:23; Admin Dose 1 TAB; Start 04/09/16 at 11:30 Senna/Docusate Sodium (Senokot-S) 1 tab BID PRN PO constipation Last administered on 04/10/16 10:18; Admin Dose 1 TAB; Start 04/09/16 at 13:30 Patient Own Medication 1 ea DAILY PO Last administered on 04/10/16 09:02; Admin Dose 1 EA; Start 04/10/16 at 09:00 HARJINDER STAHL MD Apr 10, 2016 13:37
[2016-04-10 16:26] VITALS: BP 135/72; PULSE 79; RESP 18
[2016-04-10] MEDS: CALCIUM CARBONATE 500 MG CHEW TAB PO PRN (16:32)
--- NOTE | 2016-04-10 17:25 | PN ---
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 MANAGER CONSILT PLACED, NOT ARU CANDIDATE Exam/Review of Systems Vital Signs Vitals Vital Signs Date Time Temp Pulse Resp B/P Pulse Ox O2 Delivery O2 Flow Rate FiO2 04/10/16 16:26 97.2 79 18 135/72 97 Nasal Cannula 2.0 Intake and Output 04/09/16 04/09/16 04/10/16 15:00 23:00 07:00 Intake Total 2400 ml 1300 ml Output Total 800 ml 1100 ml Balance 1600 ml 200 ml Results Result Diagram: 04/09/16 0445 04/10/16 0435 Results 24 hrs Laboratory Tests Test 04/10/16 04:35 Anion Gap 13 Blood Urea Nitrogen 12 Calcium Level 8.2 L Carbon Dioxide Level 31 Chloride Level 91 L Creatinine 0.48 L Glucose Level 107 Potassium Level 3.5 Sodium Level 131 L Medications Medications Current Medications Lactated Ringer's (Lr) 1,000 ml @ 25 mls/hr Q24H IV* Last administered on 04/08 05:22; Admin Dose 25 MLS/HR; Start 04/06/16 at 06:30 Acetaminophen/ Hydrocodone Bitart ([place] (5/325)) 1 tab Q4H PRN PO PAIN LEVEL 1 -5; Start 04/06/16 at 16:30; Status Future hold Acetaminophen/ Hydrocodone Bitart ([place] (5/325)) 2 tab Q4H PRN PO PAIN LEVEL 6 -10 Last administered on 04/10/16 14:07; Admin Dose 2 TAB; Start 04/06/16 at 16 :30; Status Future hold Prochlorperazine (Compazine) 10 mg Q4H PRN PO NAUSEA AND/OR VOMITING; Start at 16:30 Ondansetron HCl (Zofran Inj) 4 mg Q6H PRN IV NAUSEA AND/OR VOMITING; Start at 16:30 Al Hydrox/Mg Hydrox/Simethicone (Mag-Al Plus) 15 ml Q4H PRN PO CONSTIPATION Last administered on 04/08/16 14:24; Admin Dose 15 ML; Start 04/06/16 at 16:30 Docusate Sodium (Colace) 100 mg BID PO Last administered on 04/10/16 08:45; Admin Dose 100 MG; Start 04/07/16 at 09:00 Naloxone HCl (Narcan) 0.2 mg Q2M PRN IV RR 8 BREATHS/MIN OR LESS; Start at 16:30 Atenolol (Tenormin) 25 mg DAILY PO Last administered on 04/10/16 08:42; Admin Dose 25 MG; Start 04/07/16 at 09:00 Cyclobenzaprine HCl (Flexeril) 10 mg TID PRN PO MUSCLE SPASMS Last administered on 04/10/16 01:55; Admin Dose 10 MG; Start 04/06/16 at 22:00 Amlodipine Besylate (Norvasc) 5 mg DAILY PO Last administered on 04/10/16 08: 43; Admin Dose 5 MG; Start 04/07/16 at 09:00 Atorvastatin Calcium (Lipitor) 40 mg QHS PO Last administered on 04/09/16 20: 21; Admin Dose 40 MG; Start 04/07/16 at 21:00 Tamsulosin HCl (Flomax) 0.8 mg HS PO Last administered on 04/09/16 20:21; Admin Dose 0.8 MG; Start 04/07/16 at 21:00 Calcium Carbonate (Tums) 500 mg Q8 PRN PO HEARTBURN Last administered on 16:32; Admin Dose 500 MG; Start 04/08/16 at 16:00 Oxycodone/ Acetaminophen (Endocet (10/ 325)) 1 tab Q4H PRN PO PAIN Last administered on 04/09/16 20:23; Admin Dose 1 TAB; Start 04/09/16 at 11:30 Senna/Docusate Sodium (Senokot-S) 1 tab BID PRN PO constipation Last administered on 04/10/16 10:18; Admin Dose 1 TAB; Start 04/09/16 at 13:30 Patient Own Medication 1 ea DAILY PO Last administered on 04/10/16t 09:02; Admin Dose 1 EA; Start 04/10/16 at 09:00 TROY MURPHY MD Apr 10, 2016 17:25
[2016-04-10] MEDS: CEPASTAT LOZENGE MT PRN (18:02)
[2016-04-10 19:54] VITALS: BP 143/77; RESP 21
[2016-04-10] MEDS: ATORVASTATIN 40 MG TAB PO SCH (20:46)
[2016-04-10] MEDS: TAMSULOSIN (SR) 0.4 MG CAP PO SCH (20:47)
[2016-04-11] MEDS: HYDROCODONE/APAP (5/325) TAB PO PRN ×6 (02:28→22:34)
[2016-04-11 05:40] LABS: BASOPHILS % 0.3 % (0.0-2.0); EOSINOPHILS # 0.2 10^3/ul (0.0-0.5); EOSINOPHILS % 2.3 % (0.0-7.0); HEMATOCRIT 30.8 % (42.0-52.0); HEMOGLOBIN 10.8 g/dl (14.0-18.0); LYMPHOCYTES % 13.9 % (15.0-51.0); MEAN CORPUSCULAR HEMOGLOBIN 31.1 pg (29.0-33.0); MEAN CORPUSCULAR HGB CONC 34.9 g/dl (32.0-37.0); MEAN CORPUSCULAR VOLUME 89.1 fl (82.0-101.0); MEAN PLATELET VOLUME 8.1 fl (7.4-10.4); MONOCYTE # 0.7 10^3/ul (0.3-0.9); MONOCYTES % 9.3 % (0.0-11.0); NEUTROPHIL # 5.5 10^3/ul (1.6-7.5); NEUTROPHILS % 74.2 % (39.0-77.0); PLATELET COUNT 179 10^3/UL (140-440); RED BLOOD COUNT 3.46 10^6/ul (4.70-6.10); RED CELL DISTRIBUTION WIDTH 12.8 % (11.5-14.5); UNCORRECTED WBC 7.4 10^3/ul (4.8-10.8); WHITE BLOOD COUNT 7.4 10^3/ul (4.8-10.8)
[2016-04-11 06:06] LABS: POTASSIUM 3.6 mmol/L (3.5-5.1)
[2016-04-11 06:09] LABS: CREATININE 0.51 mg/dl (0.61-1.24)
[2016-04-11 06:10] LABS: CALCIUM 8.4 mg/dl (8.4-10.2); CONDITION 1
[2016-04-11] MEDS: LACTATED RINGER'S 1,000 ML IV* SCH (06:19)
[2016-04-11 08:00] VITALS: BP 128/79; RESP 20
--- NOTE | 2016-04-11 08:17 | CONS ---
Date/Time of Note Date/Time of Note DATE: 04/11/16 TIME: 08:15 Assessment/Plan Assessment/Plan Chief Complaint/Hosp Course We were consulted to see the patient on the day of admission the . The day after on the the hospitalist team was also consulted. This creates 2 internal medicine teams taking care of 1 patient. As such we will sign off the case Problems: Consultation Date/Type/Reason Admit Date/Time Apr 06, 2016 at 05:23 Initial Consult Date 04/06/2016 Type of Consultation: Internal medicine Reason for Consultation Manage medical problems Referring Provider: EHSAN STANTON MD Exam/Review of Systems Vital Signs Vitals Vital Signs Date Time Temp Pulse Resp B/P Pulse Ox O2 Delivery O2 Flow Rate FiO2 04/11/16 08:00 98.7 79 20 128/79 98 04/10/16 16:26 Nasal Cannula 2.0 Intake and Output 04/10/16 04/10/16 04/11/16 15:00 23:00 07:00 Intake Total 1800 ml 1000 ml Output Total 600 ml 500 ml 1150 ml Balance -600 ml 1300 ml -150 ml Results Result Diagram: 04/11/16 0427 04/11/16 0427 Results 24 hrs Laboratory Tests Test 04/11/16 04:27 Anion Gap 13 Basophils # 0.0 Basophils % 0.3 Blood Urea Nitrogen 11 Calcium Level 8.4 Carbon Dioxide Level 31 Chloride Level 93 L Creatinine 0.51 L Eosinophils # 0.2 Eosinophils % 2.3 Glucose Level 98 Hematocrit 30.8 L Hemoglobin 10.8 L Lymphocytes # 1.0 Lymphocytes % 13.9 L Mean Corpuscular Hemoglobin 31.1 Mean Corpuscular Hemoglobin Concent 34.9 Mean Corpuscular Volume 89.1 Mean Platelet Volume 8.1 Monocytes # 0.7 Monocytes % 9.3 Neutrophils # 5.5 Neutrophils % 74.2 Nucleated Red Blood Cells # 0.0 Nucleated Red Blood Cells % 0.0 Platelet Count 179 # Potassium Level 3.6 Red Blood Count 3.46 L Red Cell Distribution Width 12.8 Sodium Level 133 L White Blood Count 7.4 # Medications Medications Current Medications Lactated Ringer's (Lr) 1,000 ml @ 25 mls/hr Q24H IV* Last administered on 04/08t 05:22; Admin Dose 25 MLS/HR; Start 04/06/16 at 06:30 Acetaminophen/ Hydrocodone Bitart ([place] (5/325)) 1 tab Q4H PRN PO PAIN LEVEL 1 -5; Start 04/06/16 at 16:30; Status Future hold Acetaminophen/ Hydrocodone Bitart ([place] (5/325)) 2 tab Q4H PRN PO PAIN LEVEL 6 -10 Last administered on 04/11/16 06:34; Admin Dose 2 TAB; Start 04/06/16 at 16 :30; Status Future hold Prochlorperazine (Compazine) 10 mg Q4H PRN PO NAUSEA AND/OR VOMITING; Start at 16:30 Ondansetron HCl (Zofran Inj) 4 mg Q6H PRN IV NAUSEA AND/OR VOMITING; Start at 16:30 Al Hydrox/Mg Hydrox/Simethicone (Mag-Al Plus) 15 ml Q4H PRN PO CONSTIPATION Last administered on 04/08/16 14:24; Admin Dose 15 ML; Start 04/06/16 at 16:30 Docusate Sodium (Colace) 100 mg BID PO Last administered on 04/10/16 20:46; Admin Dose 100 MG; Start 04/07/16 at 09:00 Naloxone HCl (Narcan) 0.2 mg Q2M PRN IV RR 8 BREATHS/MIN OR LESS; Start at 16:30 Atenolol (Tenormin) 25 mg DAILY PO Last administered on 04/10/16 08:42; Admin Dose 25 MG; Start 04/07/16 at 09:00 Cyclobenzaprine HCl (Flexeril) 10 mg TID PRN PO MUSCLE SPASMS Last administered on 04/10/16 20:53; Admin Dose 10 MG; Start 04/06/16 at 22:00 Amlodipine Besylate (Norvasc) 5 mg DAILY PO Last administered on 04/10/16 08: 43; Admin Dose 5 MG; Start 04/07/16 at 09:00 Atorvastatin Calcium (Lipitor) 40 mg QHS PO Last administered on 04/10/16 20: 46; Admin Dose 40 MG; Start 04/07/16 at 21:00 Tamsulosin HCl (Flomax) 0.8 mg HS PO Last administered on 04/10/16 20:47; Admin Dose 0.8 MG; Start 04/07/16 at 21:00 Calcium Carbonate (Tums) 500 mg Q8 PRN PO HEARTBURN Last administered on 16:32; Admin Dose 500 MG; Start 04/08/16 at 16:00 Oxycodone/ Acetaminophen (Endocet (10/ 325)) 1 tab Q4H PRN PO PAIN Last administered on 04/09/16 20:23; Admin Dose 1 TAB; Start 04/09/16 at 11:30 Senna/Docusate Sodium (Senokot-S) 1 tab BID PRN PO constipation Last administered on 04/10/16 10:18; Admin Dose 1 TAB; Start 04/09/16 at 13:30 Patient Own Medication 1 ea DAILY PO Last administered on 04/10/16 09:02; Admin Dose 1 EA; Start 04/10/16 at 09:00 GATO PRUETT MD Apr 11, 2016 08:17
[2016-04-11] MEDS: AMLODIPINE 5 MG TAB PO SCH (08:24)
[2016-04-11] MEDS: ATENOLOL 25 MG TAB PO SCH (08:24)
[2016-04-11] MEDS: DOCUSATE SODIUM 100 MG CAP PO SCH ×2 (08:24→21:06)
[2016-04-11] MEDS: OMEPRAZOLE PO SCH (08:25)
[2016-04-11] MEDS: CEPASTAT LOZENGE MT PRN (10:16)
--- NOTE | 2016-04-11 16:01 | EN ---
Date/Time of Note Date/Time of Note DATE: 04/11/16 TIME: 16:01 Event Note Medicine Medicine Event Note Spoke with Colleen regarding hospitalist request for Lovenox. There is no contraindication. EHSAN STANTON MD Apr 11, 2016 16:01
[2016-04-11] MEDS: AL HYDROX/MG HYDROX/SIMETH 30 ML CUP PO PRN (16:08)
[2016-04-11 19:46] VITALS: BP 131/74; RESP 20
[2016-04-11] MEDS: ATORVASTATIN 40 MG TAB PO SCH (21:06)
[2016-04-11] MEDS: TAMSULOSIN (SR) 0.4 MG CAP PO SCH (21:06)
[2016-04-12] MEDS: HYDROCODONE/APAP (5/325) TAB PO PRN ×5 (03:30→21:12)
[2016-04-12 05:43] LABS: ALBUMIN 3.2 g/dl (3.3-4.9); POTASSIUM 3.7 mmol/L (3.5-5.1)
[2016-04-12 05:45] LABS: BASOPHILS % 0.1 % (0.0-2.0); CREATININE 0.43 mg/dl (0.61-1.24); EOSINOPHILS # 0.2 10^3/ul (0.0-0.5); EOSINOPHILS % 1.9 % (0.0-7.0); HEMATOCRIT 32.7 % (42.0-52.0); HEMOGLOBIN 11.1 g/dl (14.0-18.0); INR 0.99; LYMPHOCYTES # 1.1 10^3/ul (0.8-2.9); LYMPHOCYTES % 12.8 % (15.0-51.0); MEAN CORPUSCULAR HEMOGLOBIN 30.5 pg (29.0-33.0); MEAN CORPUSCULAR HGB CONC 34.1 g/dl (32.0-37.0); MEAN CORPUSCULAR VOLUME 89.6 fl (82.0-101.0); MEAN PLATELET VOLUME 8.1 fl (7.4-10.4); MONOCYTE # 0.7 10^3/ul (0.3-0.9); MONOCYTES % 8.8 % (0.0-11.0); NEUTROPHIL # 6.5 10^3/ul (1.6-7.5); NEUTROPHILS % 76.4 % (39.0-77.0); PLATELET COUNT 197 10^3/UL (140-440); PROTIME 13.1 Sec (12.2-14.2); RED BLOOD COUNT 3.65 10^6/ul (4.70-6.10); RED CELL DISTRIBUTION WIDTH 12.9 % (11.5-14.5); UNCORRECTED WBC 8.5 10^3/ul (4.8-10.8); WHITE BLOOD COUNT 8.5 10^3/ul (4.8-10.8)
[2016-04-12 05:46] LABS: ALBUMIN/GLOBULIN RATIO 1.06; BILIRUBIN,INDIRECT 0.7 mg/dl (0-1.1); BILIRUBIN,TOTAL 0.7 mg/dl (0.2-1.3); TOTAL PROTEIN 6.2 g/dl (6.1-8.1)
[2016-04-12 05:47] LABS: CALCIUM 8.4 mg/dl (8.4-10.2)
[2016-04-12 05:54] LABS: CONDITION 1
[2016-04-12 06:15] LABS: THYROID STIMULATING HORMONE 1.92 MIU/L (0.465-4.680)
[2016-04-12 07:30] VITALS: BP 158/87; RESP 20
[2016-04-12] MEDS: DOCUSATE SODIUM 100 MG CAP PO SCH ×2 (08:04→21:11)
[2016-04-12] MEDS: AMLODIPINE 5 MG TAB PO SCH (08:05)
[2016-04-12] MEDS: ATENOLOL 25 MG TAB PO SCH (08:05)
[2016-04-12] MEDS: OMEPRAZOLE PO SCH (08:06)
[2016-04-12] MEDS: ENOXAPARIN 40 MG/0.4 ML SYG SC SCH (08:20)
[2016-04-12] MEDS: AL HYDROX/MG HYDROX/SIMETH 30 ML CUP PO PRN (17:36)
[2016-04-12 19:31] VITALS: BP 146/73; RESP 20
[2016-04-12] MEDS: ATORVASTATIN 40 MG TAB PO SCH (21:11)
[2016-04-12] MEDS: TAMSULOSIN (SR) 0.4 MG CAP PO SCH (21:11)
[2016-04-13] MEDS: HYDROCODONE/APAP (5/325) TAB PO PRN ×5 (03:40→22:38)
[2016-04-13 08:07] VITALS: BP 130/70; RESP 20
[2016-04-13] MEDS: DOCUSATE SODIUM 100 MG CAP PO SCH ×2 (08:24→20:20)
[2016-04-13] MEDS: OMEPRAZOLE PO SCH (08:24)
[2016-04-13] MEDS: AMLODIPINE 5 MG TAB PO SCH (08:25)
[2016-04-13] MEDS: ATENOLOL 25 MG TAB PO SCH (08:25)
[2016-04-13] MEDS: ENOXAPARIN 40 MG/0.4 ML SYG SC SCH (08:34)
--- NOTE | 2016-04-13 12:18 | CONS ---
Date/Time of Note Date/Time of Note DATE: 04/13/16 TIME: 12:13 Assessment/Plan Assessment/Plan Chief Complaint/Hosp Course Assessment/Plan 1. 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 s/p Aortic valve replacement, bioprosthetic, stable, restart anticoagulation if cleared by orthopedic surgeon 3. Epigastric pain, better on protonix 4. Hypertension, stable 5. Dyslipidemia, on statin 6. BPH, on flomax, d/c Victor 7. Obesity with BMI of 3 At this time patient is stable medically to be discharge Follow-up with orthopedic surgeon as outpatient as per his recommendations Problems: Consultation Date/Type/Reason Admit Date/Time Apr 06, 2016 at 05:23 Initial Consult Date Type of Consultation: Internal medicine Referring Provider: EHSAN STANTON MD 24 HR Interval Summary Free Text/Dictation Patient complaint of having minor anterior thoracic discomfort this morning which was resolved spontaneously EKG was done which showed normal sinus rhythm with no evidence of ischemia Patient denies of any chest pain or shortness of breath at this time Has been able to tolerate oral intake Exam/Review of Systems Vital Signs Vitals Vital Signs Date Time Temp Pulse Resp B/P Pulse Ox O2 Delivery O2 Flow Rate FiO2 04/13/16 08:07 98.0 99 20 130/70 92 04/10/16 16:26 Nasal Cannula 2.0 Intake and Output 04/12/16 04/12/16 04/13/16 15:00 23:00 07:00 Intake Total 600 ml 1600 ml Output Total 800 ml 1400 ml Balance -200 ml 200 ml Exam General: The patient is well-developed, Not in acute distress. HEENT: Atraumatic, normocephalic. The pupils are equal and round . Neck: Supple with full range of motion. Chest: Normal expansion of the thorax during inspiration Lungs: Clear to auscultation bilaterally Heart: Normal S1-S2, Regular rhythm and rate. Abdomen: Soft , nontender, nondistended , bowel sounds are present. Extremities: Normal to inspection, no edema no cyanosis, surgical site lumbar sacral area is dry and clean no evidence of hematoma Neurologic: Normal mental status,The patient is awake, alert and oriented . Results Result Diagram: 1/22/17 0420 1/22/17 0420 Medications Medications Current Medications Acetaminophen/ Hydrocodone Bitart ([place] (5/325)) 1 tab Q4H PRN PO PAIN LEVEL 1 -5; Start 04/06/16 at 16:30; Status Future hold Acetaminophen/ Hydrocodone Bitart ([place] (5/325)) 2 tab Q4H PRN PO PAIN LEVEL 6 -10 Last administered on 04/13/16 08:26; Admin Dose 2 TAB; Start 04/06/16 at 16 :30; Status Future hold Prochlorperazine (Compazine) 10 mg Q4H PRN PO NAUSEA AND/OR VOMITING; Start at 16:30 Ondansetron HCl (Zofran Inj) 4 mg Q6H PRN IV NAUSEA AND/OR VOMITING; Start at 16:30 Al Hydrox/Mg Hydrox/Simethicone (Mag-Al Plus) 15 ml Q4H PRN PO CONSTIPATION Last administered on 04/12/16 17:36; Admin Dose 15 ML; Start 04/06/16 at 16:30 Docusate Sodium (Colace) 100 mg BID PO Last administered on 04/13/16 08:24; Admin Dose 100 MG; Start 04/07/16 at 09:00 Naloxone HCl (Narcan) 0.2 mg Q2M PRN IV RR 8 BREATHS/MIN OR LESS; Start at 16:30 Atenolol (Tenormin) 25 mg DAILY PO Last administered on 04/13/16 08:25; Admin Dose 25 MG; Start 04/07/16 at 09:00 Cyclobenzaprine HCl (Flexeril) 10 mg TID PRN PO MUSCLE SPASMS Last administered on 04/10/16 20:53; Admin Dose 10 MG; Start 04/06/16 at 22:00 Amlodipine Besylate (Norvasc) 5 mg DAILY PO Last administered on 04/13/16 08: 25; Admin Dose 5 MG; Start 04/07/16 at 09:00 Atorvastatin Calcium (Lipitor) 40 mg QHS PO Last administered on 04/12/16 21: 11; Admin Dose 40 MG; Start 04/07/16 at 21:00 Tamsulosin HCl (Flomax) 0.8 mg HS PO Last administered on 04/12/16 21:11; Admin Dose 0.8 MG; Start 04/07/16 at 21:00 Calcium Carbonate (Tums) 500 mg Q8 PRN PO HEARTBURN Last administered on 16:32; Admin Dose 500 MG; Start 04/08/16 at 16:00 Oxycodone/ Acetaminophen (Endocet (10/ 325)) 1 tab Q4H PRN PO PAIN Last administered on 04/09/16 20:23; Admin Dose 1 TAB; Start 04/09/16 at 11:30 Senna/Docusate Sodium (Senokot-S) 1 tab BID PRN PO constipation Last administered on 04/10/16 10:18; Admin Dose 1 TAB; Start 04/09/16 at 13:30 Patient Own Medication 1 ea DAILY PO Last administered on 04/13/16 08:24; Admin Dose 1 EA; Start 04/10/16 at 09:00 Enoxaparin Sodium (Lovenox) 40 mg DAILY SC Last administered on 04/13/16 08:34 ; Admin Dose 40 MG; Start 04/12/16 at 09:00 JANET MELISSA MD Apr 13, 2016 12:18
--- NOTE | 2016-04-13 13:47 | EN ---
Date/Time of Note Date/Time of Note DATE: 04/13/16 TIME: 13:42 Event Note Surgery Surgery Event Note SPINE SURGERY ATTENDING S: C/O back pain. No leg pain, but says hasn't walked enough to test. O: Marked difficulty, requiring 2 UX/MAX assist to arrise from chair. Stands well once up. Wound soft/non-tender, Small stain on dressing A Satisfactory post op course. Recovery slightly slower than expected. Lives alone and is not safe for discharge. P: 1. will need acute rehab. 2. otherwise per hospitalist team. MAXIMINO [phone]. EHSAN STANTON MD Apr 13, 2016 13:47
--- NOTE | 2016-04-13 17:41 | PN ---
Date/Time of Note Date/Time of Note DATE: 04/13/16 TIME: 17:38 Assessment/Plan VTE Prophylaxis VTE Prophylaxis Intervention: LMWH Lines/Catheters IV Catheter Type (from Nrsg): Saline Lock Subjective 24 Hr Interval Summary Free Text/Dictation making good progress post op, walked 120 feet with pt today, probable dc to facility close to his house tomorrow labs ok, hgb 11, chems ok episode very nonspecific chest wall pain today, evaluation negative and now sx consistent with skeletal pain from positioning for surgery i think on exam, lungs clear, heart rate is ok abd obese, nl bs ext no edema Exam/Review of Systems Vital Signs Vitals Vital Signs Date Time Temp Pulse Resp B/P Pulse Ox O2 Delivery O2 Flow Rate FiO2 04/13/16 08:07 98.0 99 20 130/70 92 04/10/16 16:26 Nasal Cannula 2.0 Intake and Output 04/12/16 04/12/16 04/13/16 15:00 23:00 07:00 Intake Total 600 ml 1600 ml Output Total 800 ml 1400 ml Balance -200 ml 200 ml Results Result Diagram: 04/12/16 0420 04/12/16 0420 Medications Medications Current Medications Acetaminophen/ Hydrocodone Bitart ([place] (5/325)) 1 tab Q4H PRN PO PAIN LEVEL 1 -5; Start 04/06/16 at 16:30; Status Future hold Acetaminophen/ Hydrocodone Bitart ([place] (5/325)) 2 tab Q4H PRN PO PAIN LEVEL 6 -10 Last administered on 04/13/16 17:28; Admin Dose 2 TAB; Start 04/06/16 at 16 :30; Status Future hold Prochlorperazine (Compazine) 10 mg Q4H PRN PO NAUSEA AND/OR VOMITING; Start at 16:30 Ondansetron HCl (Zofran Inj) 4 mg Q6H PRN IV NAUSEA AND/OR VOMITING; Start at 16:30 Al Hydrox/Mg Hydrox/Simethicone (Mag-Al Plus) 15 ml Q4H PRN PO CONSTIPATION Last administered on 04/12/16 17:36; Admin Dose 15 ML; Start 04/06/16 at 16:30 Docusate Sodium (Colace) 100 mg BID PO Last administered on 04/13/16 08:24; Admin Dose 100 MG; Start 04/07/16 at 09:00 Naloxone HCl (Narcan) 0.2 mg Q2M PRN IV RR 8 BREATHS/MIN OR LESS; Start at 16:30 Atenolol (Tenormin) 25 mg DAILY PO Last administered on 04/13/16 08:25; Admin Dose 25 MG; Start 04/07/16 at 09:00 Cyclobenzaprine HCl (Flexeril) 10 mg TID PRN PO MUSCLE SPASMS Last administered on 04/10/16 20:53; Admin Dose 10 MG; Start 04/06/16 at 22:00 Amlodipine Besylate (Norvasc) 5 mg DAILY PO Last administered on 04/13/16 08: 25; Admin Dose 5 MG; Start 04/07/16 at 09:00 Atorvastatin Calcium (Lipitor) 40 mg QHS PO Last administered on 04/12/16 21: 11; Admin Dose 40 MG; Start 04/07/16 at 21:00 Tamsulosin HCl (Flomax) 0.8 mg HS PO Last administered on 04/12/16 21:11; Admin Dose 0.8 MG; Start 04/07/16 at 21:00 Calcium Carbonate (Tums) 500 mg Q8 PRN PO HEARTBURN Last administered on 16:32; Admin Dose 500 MG; Start 04/08/16 at 16:00 Oxycodone/ Acetaminophen (Endocet (10/ 325)) 1 tab Q4H PRN PO PAIN Last administered on 04/09/16 20:23; Admin Dose 1 TAB; Start 04/09/16 at 11:30 Senna/Docusate Sodium (Senokot-S) 1 tab BID PRN PO constipation Last administered on 04/10/16 10:18; Admin Dose 1 TAB; Start 04/09/16 at 13:30 Patient Own Medication 1 ea DAILY PO Last administered on 04/13/16 08:24; Admin Dose 1 EA; Start 04/10/16 at 09:00 Enoxaparin Sodium (Lovenox) 40 mg DAILY SC Last administered on 04/13/16 08:34 ; Admin Dose 40 MG; Start 04/12/16 at 09:00 TROY MURPHY MD Apr 13, 2016 17:40
[2016-04-13 19:56] VITALS: BP 137/78; RESP 20
[2016-04-13] MEDS: TAMSULOSIN (SR) 0.4 MG CAP PO SCH (20:20)
[2016-04-13] MEDS: ATORVASTATIN 40 MG TAB PO SCH (20:20)
[2016-04-14] MEDS: HYDROCODONE/APAP (5/325) TAB PO PRN ×5 (02:37→19:51)
[2016-04-14 07:59] VITALS: BP 147/90; RESP 18
[2016-04-14] MEDS: DOCUSATE SODIUM 100 MG CAP PO SCH ×2 (08:11→19:51)
[2016-04-14] MEDS: AMLODIPINE 5 MG TAB PO SCH (08:11)
[2016-04-14] MEDS: ATENOLOL 25 MG TAB PO SCH (08:11)
[2016-04-14] MEDS: CYCLOBENZAPRINE 10 MG TAB PO PRN (08:11)
[2016-04-14] MEDS: OMEPRAZOLE PO SCH (09:00)
--- NOTE | 2016-04-14 10:41 | EN ---
Date/Time of Note Date/Time of Note DATE: 04/07/16 TIME: 11:43 Event Note Surgery Surgery Event Note Operative note Ty Richey April 06, 2016 Preoperative diagnosis Spinal stenosis, L3-S1 Postoperative diagnosis Same Procedure 1. Minimally invasive approach to spine, L3-L4 right, with bilateral decompression at L3-L4 2. Separate, minimally invasive approach to spine, L4-L5 left, with bilateral decompression L4-L5 3. Separate, minimally invasive approach to spine, right, L5-S1, with bilateral decompression . Surgeon David Manufacturing Assembler surgeon Clare Procedure in detail The patient was identified in the holding unit and his questions were answered. The surgical site was marked. He was taken to the operating room, given a general anesthetic, and placed in the prone position. Appropriate lines inclusive of an arterial line as well as spinal monitoring equipment was in place. He was positioned on the Mohinder 4 lap maker table because of his large size, and large abdominal panniculus. Image intensification was used constantly for minimally invasive technique and for localization of level. Three separate minimally invasive approaches were decided upon, to avoid a single large exposure in a large patient . 1. First at L3-L4 on the right, the level was localized with biplanar image intensification, and a 3 cm incision was made 2 cm to the right of the midline. The fascia was divided sharply after traveling through approximately 3 inches of fat. The facet joint was palpated manually. The docking tool was placed over the facet and dilators were used with sequential dilation. Location was confirmed by biplane image intensification. Quadrant retractor was placed. Facet was denuded of soft tissue medially with electrocautery as well as lamina and distal ventral spinous process. High-speed drill was used to remove lamina and medial portion of facet as well as basis spinous process and portion of lamina on the other side. Ligamentum flavum was left in place. Once all the bony decompression bilaterally had been accomplished, the ligamentum flavum was removed and additional lateral decompression was accomplished on the right side as well as the left side. The wound was irrigated and the retractor was removed 2. Secondly, at L5-S1 on the right on the right, the level was localized with biplanar image intensification, and a separate 3 cm incision was made 2 cm to the right of the midline. The fascia was divided sharply after traveling through approximately 3 inches of fat. The facet joint was palpated manually. The docking tool was placed over the facet and dilators were used with sequential dilation. Location was confirmed by biplane image intensification. Quadrant retractor was placed. Facet was denuded of soft tissue medially with electrocautery as well as lamina and distal ventral spinous process. High- speed drill was used to remove lamina and medial portion of facet as well as basis spinous process and portion of lamina on the other side. Ligamentum flavum was left in place. Once all the bony decompression bilaterally had been accomplished, the ligamentum flavum was removed and additional lateral decompression was accomplished on the right side as well as the left side. The sac was decompressed out onto the sacrum. A small durotomy in a sacral root was noticed. Rootlets were seen but no spinal fluid was visualized. Nonetheless, at the close of the procedure the wound was cemented into place with DuraGen and DuraSeal and the retractor was removed. 3. Finally, the L4 5 level was approached. I selected the opposite side for this in order to have 3 smaller minimally invasive approaches rather than a large paraspinal or central approach in this obese man with 3 level problem. The level was localized with biplanar image intensification, and a 3 cm incision was made 2 cm to the right of the midline. The fascia was divided sharply after traveling through approximately 3 inches of fat. The facet joint was palpated manually. The docking tool was placed over the facet and dilators were used with sequential dilation. Location was confirmed by biplane image intensification. Quadrant retractor was placed. Facet was denuded of soft tissue medially with electrocautery as well as lamina and distal ventral spinous process. High-speed drill was used to remove lamina and medial portion of facet as well as basis spinous process and portion of lamina on the other side. Ligamentum flavum was left in place. Once all the bony decompression bilaterally had been accomplished, the ligamentum flavum was removed and additional lateral decompression was accomplished on the right side as well as the left side. The wound was irrigated and the retractor was removed. We were told that the sponge and instrument counts were correct spinal monitoring showed constant improvement to normal bilaterally in the course of the procedure. Blood loss was nil. Specifically, less than 10 cc. The wounds were closed first with 0 Vicryl for the fascia, and 20 4 subcutaneous tissue. Skin was closed with Monocryl 4-0 reinforced with Dermabond. The patient was returned to the supine position, and transferred to the recovery room, extubated, in satisfactory condition breathing spontaneously EHSAN STANTON MD Apr 07, 2016 11:53
--- NOTE | 2016-04-14 11:44 | CONS ---
Date/Time of Note Date/Time of Note DATE: 04/14/16 TIME: 11:43 Assessment/Plan Assessment/Plan Chief Complaint/Hosp Course Assessment/Plan 1. 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 s/p Aortic valve replacement, bioprosthetic, stable, restart anticoagulation if cleared by orthopedic surgeon 3. Epigastric pain, better on protonix 4. Hypertension, stable 5. Dyslipidemia, on statin 6. BPH, on flomax, d/c Victor 7. Obesity with BMI of 3 At this time patient is stable medically to be discharge Follow-up with orthopedic surgeon as outpatient as per his recommendations Problems: Consultation Date/Type/Reason Admit Date/Time Apr 06, 2016 at 05:23 Type of Consultation: Internal medicine Referring Provider: EHSAN STANTON MD 24 HR Interval Summary Free Text/Dictation Patient denies of any chest pain or shortness of breath Ambulating without any discomfort Exam/Review of Systems Vital Signs Vitals Vital Signs Date Time Temp Pulse Resp B/P Pulse Ox O2 Delivery O2 Flow Rate FiO2 04/14/16 07:59 98.0 86 18 147/90 95 04/10/16 16:26 Nasal Cannula 2.0 Intake and Output 04/13/16 04/13/16 04/14/16 15:00 23:00 07:00 Intake Total 1200 ml 620 ml Output Total 1050 ml 650 ml Balance 150 ml -30 ml Exam General: The patient is well-developed, Not in acute distress. HEENT: Atraumatic, normocephalic. The pupils are equal and round . Neck: Supple with full range of motion. Chest: Normal expansion of the thorax during inspiration Lungs: Clear to auscultation bilaterally Heart: Normal S1-S2, Regular rhythm and rate. Abdomen: Soft , nontender, nondistended , bowel sounds are present. Extremities: Normal to inspection, no edema no cyanosis Neurologic: Normal mental status,The patient is awake, alert and oriented . Results Result Diagram: 04/12/1641904/12/16419 Medications Medications Current Medications Acetaminophen/ Hydrocodone Bitart ([place] (5/325)) 1 tab Q4H PRN PO PAIN LEVEL 1 -5; Start 04/06/16 at 16:30; Status Future hold Acetaminophen/ Hydrocodone Bitart ([place] (5/325)) 2 tab Q4H PRN PO PAIN LEVEL 6 -10 Last administered on 04/14/16 11:05; Admin Dose 2 TAB; Start 04/06/16 at 16 :30; Status Future hold Prochlorperazine (Compazine) 10 mg Q4H PRN PO NAUSEA AND/OR VOMITING; Start at 16:30 Ondansetron HCl (Zofran Inj) 4 mg Q6H PRN IV NAUSEA AND/OR VOMITING; Start at 16:30 Al Hydrox/Mg Hydrox/Simethicone (Mag-Al Plus) 15 ml Q4H PRN PO CONSTIPATION Last administered on 04/12/16 17:36; Admin Dose 15 ML; Start 04/06/16 at 16:30 Docusate Sodium (Colace) 100 mg BID PO Last administered on 04/14/16 08:11; Admin Dose 100 MG; Start 04/07/16 at 09:00 Naloxone HCl (Narcan) 0.2 mg Q2M PRN IV RR 8 BREATHS/MIN OR LESS; Start at 16:30 Atenolol (Tenormin) 25 mg DAILY PO Last administered on 04/14/16 08:11; Admin Dose 25 MG; Start 04/07/16 at 09:00 Cyclobenzaprine HCl (Flexeril) 10 mg TID PRN PO MUSCLE SPASMS Last administered on 04/14/16 08:11; Admin Dose 10 MG; Start 04/06/16 at 22:00 Amlodipine Besylate (Norvasc) 5 mg DAILY PO Last administered on 04/14/16 08: 11; Admin Dose 5 MG; Start 04/07/16 at 09:00 Atorvastatin Calcium (Lipitor) 40 mg QHS PO Last administered on 04/13/16 20: 20; Admin Dose 40 MG; Start 04/07/16 at 21:00 Tamsulosin HCl (Flomax) 0.8 mg HS PO Last administered on 04/13/16 20:20; Admin Dose 0.8 MG; Start 04/07/16 at 21:00 Calcium Carbonate (Tums) 500 mg Q8 PRN PO HEARTBURN Last administered on 16:32; Admin Dose 500 MG; Start 04/08/16 at 16:00 Oxycodone/ Acetaminophen (Endocet (10)) 1 tab Q4H PRN PO PAIN Last administered on 04/09/16 20:23; Admin Dose 1 TAB; Start 04/09/16 at 11:30 Senna/Docusate Sodium (Senokot-S) 1 tab BID PRN PO constipation Last administered on 04/10/16 10:18; Admin Dose 1 TAB; Start 04/09/16 at 13:30 Patient Own Medication 1 ea DAILY PO Last administered on 04/13/16 08:24; Admin Dose 1 EA; Start 04/10/16 at 09:00 Enoxaparin Sodium (Lovenox) 40 mg DAILY SC Last administered on 04/13/16 08:34 ; Admin Dose 40 MG; Start 04/12/16 at 09:00 JANET MELISSA MD Apr 14, 2016 11:43
[2016-04-14] MEDS: ENOXAPARIN 40 MG/0.4 ML SYG SC SCH (14:04)
--- NOTE | 2016-04-14 18:07 | PN ---
Date/Time of Note Date/Time of Note DATE: 04/14/16 TIME: 18:06 Assessment/Plan Lines/Catheters IV Catheter Type (from Nrsg): Saline Lock Victor in Place (from Nrsg): No Subjective 24 Hr Interval Summary Seeing patient for Dr. Hernandez. Patient is doing well. He has been ambulating with assistance. His pain is well controlled. He has had a bowel movement and is voiding. Incision is healing well. He is awaiting authorization for transfer to short-term rehab Exam/Review of Systems Vital Signs Vitals Vital Signs Date Time Temp Pulse Resp B/P Pulse Ox O2 Delivery O2 Flow Rate FiO2 04/14/16 07:59 98.0 86 18 147/90 95 04/10/16 16:26 Nasal Cannula 2.0 Intake and Output 04/13/16 04/13/16 04/14/16 15:00 23:00 07:00 Intake Total 1200 ml 620 ml Output Total 1050 ml 650 ml Balance 150 ml -30 ml Results Result Diagram: 04/12/16 0420 04/12/16 0420 BLAKE BATISTA Apr 14, 2016 18:07
[2016-04-14] MEDS: ATORVASTATIN 40 MG TAB PO SCH (19:51)
[2016-04-14] MEDS: TAMSULOSIN (SR) 0.4 MG CAP PO SCH (19:51)
[2016-04-14 21:06] VITALS: BP 128/75; RESP 20
[2016-04-15] MEDS: HYDROCODONE/APAP (5/325) TAB PO PRN ×5 (00:09→19:16)
[2016-04-15 08:05] VITALS: BP 126/89; RESP 16
[2016-04-15] MEDS: OMEPRAZOLE PO SCH (08:25)
[2016-04-15] MEDS: DOCUSATE SODIUM 100 MG CAP PO SCH ×2 (08:25→20:33)
[2016-04-15] MEDS: AMLODIPINE 5 MG TAB PO SCH (08:26)
[2016-04-15] MEDS: ATENOLOL 25 MG TAB PO SCH (08:26)
[2016-04-15] MEDS: ENOXAPARIN 40 MG/0.4 ML SYG SC SCH (08:33)
[2016-04-15] MEDS: CYCLOBENZAPRINE 10 MG TAB PO PRN (08:34)
--- NOTE | 2016-04-15 12:06 | CONS ---
Date/Time of Note Date/Time of Note DATE: 04/15/16 TIME: 12:05 Assessment/Plan Assessment/Plan Chief Complaint/Hosp Course Assessment/Plan 1. 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 s/p Aortic valve replacement, bioprosthetic, stable, restart anticoagulation if cleared by orthopedic surgeon 3. Epigastric pain, better on protonix 4. Hypertension, stable 5. Dyslipidemia, on statin 6. BPH, on flomax, d/c Victor 7. Obesity with BMI of 3 At this time patient is stable medically to be discharge Follow-up with orthopedic surgeon as outpatient as per his recommendations Waiting for placement Problems: Consultation Date/Type/Reason Admit Date/Time Apr 06, 2016 at 05:23 Type of Consultation: Internal medicine Referring Provider: EHSAN STANTON MD 24 HR Interval Summary Free Text/Dictation Patient denies of any chest pain or shortness of breath Complains of having mild thoracic pain Able to ambulate with minimal assist Exam/Review of Systems Vital Signs Vitals Vital Signs Date Time Temp Pulse Resp B/P Pulse Ox O2 Delivery O2 Flow Rate FiO2 04/15/16 08:05 97.8 90 16 126/89 96 Intake and Output 04/14/16 04/14/16 04/15/16 15:00 23:00 07:00 Intake Total 540 ml 300 ml Output Total 550 ml Balance -10 ml 300 ml Exam General: The patient is well-developed, Not in acute distress. HEENT: Atraumatic, normocephalic. The pupils are equal and round . Neck: Supple with full range of motion. Chest: Normal expansion of the thorax during inspiration Lungs: Clear to auscultation bilaterally Heart: Normal S1-S2, Regular rhythm and rate. Abdomen: Soft , nontender, nondistended , bowel sounds are present. Extremities: Normal to inspection, no edema no cyanosis Neurologic: Normal mental status,The patient is awake, alert and oriented . Results Result Diagram: 04/12/1641904/12/16419 Medications Medications Current Medications Acetaminophen/ Hydrocodone Bitart ([place] (5/325)) 1 tab Q4H PRN PO PAIN LEVEL 1 -5; Start 04/06/16 at 16:30; Status Future hold Acetaminophen/ Hydrocodone Bitart ([place] (5/325)) 2 tab Q4H PRN PO PAIN LEVEL 6 -10 Last administered on 04/15/16 10:35; Admin Dose 2 TAB; Start 04/06/16 at 16 :30; Status Future hold Prochlorperazine (Compazine) 10 mg Q4H PRN PO NAUSEA AND/OR VOMITING; Start at 16:30 Ondansetron HCl (Zofran Inj) 4 mg Q6H PRN IV NAUSEA AND/OR VOMITING; Start at 16:30 Al Hydrox/Mg Hydrox/Simethicone (Mag-Al Plus) 15 ml Q4H PRN PO CONSTIPATION Last administered on 04/12/16 17:36; Admin Dose 15 ML; Start 04/06/16 at 16:30 Docusate Sodium (Colace) 100 mg BID PO Last administered on 04/15/16 08:25; Admin Dose 100 MG; Start 04/07/16 at 09:00 Naloxone HCl (Narcan) 0.2 mg Q2M PRN IV RR 8 BREATHS/MIN OR LESS; Start at 16:30 Atenolol (Tenormin) 25 mg DAILY PO Last administered on 04/15/16 08:26; Admin Dose 25 MG; Start 04/07/16 at 09:00 Cyclobenzaprine HCl (Flexeril) 10 mg TID PRN PO MUSCLE SPASMS Last administered on 04/15/16 08:34; Admin Dose 10 MG; Start 04/06/16 at 22:00 Amlodipine Besylate (Norvasc) 5 mg DAILY PO Last administered on 04/15/16 08: 26; Admin Dose 5 MG; Start 04/07/16 at 09:00 Atorvastatin Calcium (Lipitor) 40 mg QHS PO Last administered on 04/14/16 19: 51; Admin Dose 40 MG; Start 04/07/16 at 21:00 Tamsulosin HCl (Flomax) 0.8 mg HS PO Last administered on 04/14/16 19:51; Admin Dose 0.8 MG; Start 04/07/16 at 21:00 Calcium Carbonate (Tums) 500 mg Q8 PRN PO HEARTBURN Last administered on 16:32; Admin Dose 500 MG; Start 04/08/16 at 16:00 Oxycodone/ Acetaminophen (Endocet (10)) 1 tab Q4H PRN PO PAIN Last administered on 04/09/16 20:23; Admin Dose 1 TAB; Start 04/09/16 at 11:30 Senna/Docusate Sodium (Senokot-S) 1 tab BID PRN PO constipation Last administered on 04/10/16 10:18; Admin Dose 1 TAB; Start 04/09/16 at 13:30 Patient Own Medication 1 ea DAILY PO Last administered on 04/15/16 08:25; Admin Dose 1 EA; Start 04/10/16 at 09:00 Enoxaparin Sodium (Lovenox) 40 mg DAILY SC Last administered on 04/15/16 08:33 ; Admin Dose 40 MG; Start 04/12/16 at 09:00 JANET MELISSA MD Apr 15, 2016 12:06
--- NOTE | 2016-04-15 14:47 | RADRPT ---
Vent Rate: 76 bpm RR Interval: 0 msec DC Interval: 172 msec QRS Duration: 96 msec QT Interval: 396 msec QTC Interval: 445 msec P-R-T [place]: 31 - 6 - 19 degrees Normal sinus rhythm Normal ECG Electronically Signed By: Jose Danielle [id number]
--- NOTE | 2016-04-15 17:17 | PN ---
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 looking for a facility for him till able to return home alert, lungs are clear, ant rib soreness to palpation, reproduces chest sx abd soft, labs ok Exam/Review of Systems Vital Signs Vitals Vital Signs Date Time Temp Pulse Resp B/P Pulse Ox O2 Delivery O2 Flow Rate FiO2 04/15/16 08:05 97.8 90 16 126/89 96 Intake and Output 04/14/16 04/14/16 04/15/16 15:00 23:00 07:00 Intake Total 540 ml 300 ml Output Total 550 ml Balance -10 ml 300 ml Results Result Diagram: 04/12/1641904/12/16 0420 Medications Medications Current Medications Acetaminophen/ Hydrocodone Bitart ([place] (5/325)) 1 tab Q4H PRN PO PAIN LEVEL 1 -5; Start 04/06/16 at 16:30; Status Future hold Acetaminophen/ Hydrocodone Bitart ([place] (5/325)) 2 tab Q4H PRN PO PAIN LEVEL 6 -10 Last administered on 04/15/16 15:17; Admin Dose 2 TAB; Start 04/06/16 at 16 :30; Status Future hold Prochlorperazine (Compazine) 10 mg Q4H PRN PO NAUSEA AND/OR VOMITING; Start at 16:30 Ondansetron HCl (Zofran Inj) 4 mg Q6H PRN IV NAUSEA AND/OR VOMITING; Start at 16:30 Al Hydrox/Mg Hydrox/Simethicone (Mag-Al Plus) 15 ml Q4H PRN PO CONSTIPATION Last administered on 04/12/16 17:36; Admin Dose 15 ML; Start 04/06/16 at 16:30 Docusate Sodium (Colace) 100 mg BID PO Last administered on 04/15/16 08:25; Admin Dose 100 MG; Start 04/07/16 at 09:00 Naloxone HCl (Narcan) 0.2 mg Q2M PRN IV RR 8 BREATHS/MIN OR LESS; Start at 16:30 Atenolol (Tenormin) 25 mg DAILY PO Last administered on 04/15/16 08:26; Admin Dose 25 MG; Start 04/07/16 at 09:00 Cyclobenzaprine HCl (Flexeril) 10 mg TID PRN PO MUSCLE SPASMS Last administered on 04/15/16 08:34; Admin Dose 10 MG; Start 04/06/16 at 22:00 Amlodipine Besylate (Norvasc) 5 mg DAILY PO Last administered on 04/15/16 08: 26; Admin Dose 5 MG; Start 04/07/16 at 09:00 Atorvastatin Calcium (Lipitor) 40 mg QHS PO Last administered on 04/14/16 19: 51; Admin Dose 40 MG; Start 04/07/16 at 21:00 Tamsulosin HCl (Flomax) 0.8 mg HS PO Last administered on 04/14/16 19:51; Admin Dose 0.8 MG; Start 04/07/16 at 21:00 Calcium Carbonate (Tums) 500 mg Q8 PRN PO HEARTBURN Last administered on 16:32; Admin Dose 500 MG; Start 04/08/16 at 16:00 Oxycodone/ Acetaminophen (Endocet (10/ 325)) 1 tab Q4H PRN PO PAIN Last administered on 04/09/16 20:23; Admin Dose 1 TAB; Start 04/09/16 at 11:30 Senna/Docusate Sodium (Senokot-S) 1 tab BID PRN PO constipation Last administered on 04/10/16 10:18; Admin Dose 1 TAB; Start 04/09/16 at 13:30 Patient Own Medication 1 ea DAILY PO Last administered on 04/15/16 08:25; Admin Dose 1 EA; Start 04/10/16 at 09:00 Enoxaparin Sodium (Lovenox) 40 mg DAILY SC Last administered on 04/15/16 08:33 ; Admin Dose 40 MG; Start 04/12/16 at 09:00 TROY MURPHY MD Apr 15, 2016 17:17
[2016-04-15 19:47] VITALS: BP 137/69; RESP 18
[2016-04-15] MEDS: RANITIDINE 150 MG TAB PO SCH (20:33)
[2016-04-15] MEDS: TAMSULOSIN (SR) 0.4 MG CAP PO SCH (20:33)
[2016-04-15] MEDS: ATORVASTATIN 40 MG TAB PO SCH (20:33)
[2016-04-16] MEDS: HYDROCODONE/APAP (5/325) TAB PO PRN ×4 (05:41→19:23)
[2016-04-16 07:50] VITALS: BP 143/80; RESP 16
[2016-04-16] MEDS: AMLODIPINE 5 MG TAB PO SCH (09:00)
[2016-04-16] MEDS: DOCUSATE SODIUM 100 MG CAP PO SCH ×2 (09:00→20:05)
[2016-04-16] MEDS: OMEPRAZOLE PO SCH (09:00)
[2016-04-16] MEDS: ATENOLOL 25 MG TAB PO SCH (09:01)
[2016-04-16] MEDS: RANITIDINE 150 MG TAB PO SCH ×2 (09:01→20:06)
[2016-04-16] MEDS: ENOXAPARIN 40 MG/0.4 ML SYG SC SCH (09:04)
--- NOTE | 2016-04-16 12:29 | PN ---
Date/Time of Note Date/Time of Note DATE: 04/16/16 TIME: 12:28 Assessment/Plan VTE Prophylaxis VTE Prophylaxis Intervention: SCD's Lines/Catheters IV Catheter Type (from Nrs): Saline Lock Urinary Cath still in place: No Assessment/Plan Chief Complaint/Hosp Course Assessment/Plan 1. 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 s/p Aortic valve replacement, bioprosthetic, stable, restart anticoagulation if cleared by orthopedic surgeon 3. Epigastric pain, better on protonix 4. Hypertension, stable 5. Dyslipidemia, on statin 6. BPH, on flomax, d/c Victor 7. Obesity with BMI of 3 At this time patient is stable medically to be discharge Follow-up with orthopedic surgeon as outpatient as per his recommendations Waiting for placement Problems: Subjective 24 Hr Interval Summary Free Text/Dictation Denies of any chest pain or shortness of breath still needs help with transfers but ambulating with minimal assist, not safe to be byself, lives alone family independence case manager looking for a facility for him till able to return home Exam/Review of Systems Vital Signs Vitals Vital Signs Date Time Temp Pulse Resp B/P Pulse Ox O2 Delivery O2 Flow Rate FiO2 04/16/16 07:50 97.6 85 16 143/80 97 Intake and Output 04/15/16 04/15/16 04/16/16 15:00 23:00 07:00 Intake Total 820 ml 450 ml Output Total 1550 ml 1050 ml Balance -730 ml -600 ml Exam General: The patient is well-developed, Not in acute distress. HEENT: Atraumatic, normocephalic. The pupils are equal and round . Neck: Supple with full range of motion. Chest: Normal expansion of the thorax during inspiration Lungs: Clear to auscultation bilaterally Heart: Normal S1-S2, Regular rhythm and rate. Abdomen: Soft , nontender, nondistended , bowel sounds are present. Extremities: Normal to inspection, no edema no cyanosis Neurologic: Normal mental status,The patient is awake, alert and oriented . Results Result Diagram: 04/12/1641904/12/16419 Medications Medications Current Medications Acetaminophen/ Hydrocodone Bitart ([place] (5/325)) 1 tab Q4H PRN PO PAIN LEVEL 1 -5; Start 04/06/16 at 16:30; Status Future hold Acetaminophen/ Hydrocodone Bitart ([place] (5/325)) 2 tab Q4H PRN PO PAIN LEVEL 6 -10 Last administered on 04/16/16 10:59; Admin Dose 2 TAB; Start 04/06/16 at 16 :30; Status Future hold Prochlorperazine (Compazine) 10 mg Q4H PRN PO NAUSEA AND/OR VOMITING; Start at 16:30 Ondansetron HCl (Zofran Inj) 4 mg Q6H PRN IV NAUSEA AND/OR VOMITING; Start at 16:30 Al Hydrox/Mg Hydrox/Simethicone (Mag-Al Plus) 15 ml Q4H PRN PO CONSTIPATION Last administered on 04/12/16 17:36; Admin Dose 15 ML; Start 04/06/16 at 16:30 Docusate Sodium (Colace) 100 mg BID PO Last administered on 04/16/16 09:00; Admin Dose 100 MG; Start 04/07/16 at 09:00 Naloxone HCl (Narcan) 0.2 mg Q2M PRN IV RR 8 BREATHS/MIN OR LESS; Start at 16:30 Atenolol (Tenormin) 25 mg DAILY PO Last administered on 04/16/16 09:01; Admin Dose 25 MG; Start 04/07/16 at 09:00 Cyclobenzaprine HCl (Flexeril) 10 mg TID PRN PO MUSCLE SPASMS Last administered on 04/15/16 08:34; Admin Dose 10 MG; Start 04/06/16 at 22:00 Amlodipine Besylate (Norvasc) 5 mg DAILY PO Last administered on 04/16/16 09: 00; Admin Dose 5 MG; Start 04/07/16 at 09:00 Atorvastatin Calcium (Lipitor) 40 mg QHS PO Last administered on 04/15/16 20: 33; Admin Dose 40 MG; Start 04/07/16 at 21:00 Tamsulosin HCl (Flomax) 0.8 mg HS PO Last administered on 04/15/16 20:33; Admin Dose 0.8 MG; Start 04/07/16 at 21:00 Calcium Carbonate (Tums) 500 mg Q8 PRN PO HEARTBURN Last administered on 16:32; Admin Dose 500 MG; Start 04/08/16 at 16:00 Oxycodone/ Acetaminophen (Endocet (10)) 1 tab Q4H PRN PO PAIN Last administered on 04/09/16 20:23; Admin Dose 1 TAB; Start 04/09/16 at 11:30 Senna/Docusate Sodium (Senokot-S) 1 tab BID PRN PO constipation Last administered on 04/10/16 10:18; Admin Dose 1 TAB; Start 04/09/16 at 13:30 Patient Own Medication 1 ea DAILY PO Last administered on 04/15/16 08:25; Admin Dose 1 EA; Start 04/10/16 at 09:00 Enoxaparin Sodium (Lovenox) 40 mg DAILY SC Last administered on 04/16/16 09:04 ; Admin Dose 40 MG; Start 04/12/16 at 09:00 Ranitidine HCl (Zantac) 150 mg BID PO Last administered on 04/16/16 09:01; Admin Dose 150 MG; Start 04/15/16 at 21:00 JANET MELISSA MD Apr 16, 2016 12:29
[2016-04-16 19:00] VITALS: BP 133/67; RESP 18
[2016-04-16] MEDS: ATORVASTATIN 40 MG TAB PO SCH (20:06)
[2016-04-16] MEDS: TAMSULOSIN (SR) 0.4 MG CAP PO SCH (20:06)
[2016-04-17] MEDS: HYDROCODONE/APAP (5/325) TAB PO PRN ×6 (00:16→23:02)
[2016-04-17 07:00] VITALS: BP 135/83; RESP 18
[2016-04-17] MEDS: RANITIDINE 150 MG TAB PO SCH ×2 (08:37→20:20)
[2016-04-17] MEDS: AMLODIPINE 5 MG TAB PO SCH (08:37)
[2016-04-17] MEDS: ATENOLOL 25 MG TAB PO SCH (08:38)
[2016-04-17] MEDS: DOCUSATE SODIUM 100 MG CAP PO SCH ×2 (08:38→20:21)
[2016-04-17] MEDS: OMEPRAZOLE PO SCH (08:39)
[2016-04-17] MEDS: ENOXAPARIN 40 MG/0.4 ML SYG SC SCH (08:43)
--- NOTE | 2016-04-17 11:56 | EN ---
Date/Time of Note Date/Time of Note DATE: 04/17/16 TIME: 11:50 Event Note Surgery Surgery Event Note POD 11 ORTHOPAEDIC SPINE STAFF S: Pleased with progress. Has trouble left more than right bending legs for pericare. "Feels like a muscle" pointing to thighs. Wants to be discharged to inpatient rehab. Lacks confidence to go home with home care. Says is improving, however, and may be ready to go home with home care in the next few days. Ambulatory in levy, shower, and BRP. Claims that insurance/worker's comp issues preventing DC to IP rehab. O: Good spirits. Good lower extremity function. A; Satisfactory post op course. P: Awaits transfer to IP rehab vs. home with home care. EHSAN BLANK MD Apr 17, 2016 11:56
--- NOTE | 2016-04-17 14:13 | PN ---
Date/Time of Note Date/Time of Note DATE: 04/17/16 TIME: 14:11 Assessment/Plan VTE Prophylaxis VTE Prophylaxis Intervention: SCD's Lines/Catheters IV Catheter Type (from Nrs): Saline Lock Urinary Cath still in place: No Assessment/Plan Chief Complaint/Hosp Course Assessment/Plan 1. 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 s/p Aortic valve replacement, bioprosthetic, stable, restart anticoagulation if cleared by orthopedic surgeon 3. Epigastric pain, better on protonix 4. Hypertension, stable 5. Dyslipidemia, on statin 6. BPH, on flomax, d/c Victor 7. Obesity with BMI of 3 At this time patient is stable medically to be discharge Follow-up with orthopedic surgeon as outpatient as per his recommendations Plan to discharge home feet [facility] on 04/20/2016 Problems: Subjective 24 Hr Interval Summary Free Text/Dictation Patient is ambulating without any difficulty Denies of any nausea vomiting Minimal low back pain Denies of any chest pain or shortness of breath Exam/Review of Systems Vital Signs Vitals Vital Signs Date Time Temp Pulse Resp B/P Pulse Ox O2 Delivery O2 Flow Rate FiO2 04/17/16 07:00 98.7 84 18 135/83 98 Intake and Output 04/16/16 04/16/16 04/17/16 15:00 23:00 07:00 Intake Total 600 ml Output Total 800 ml Balance -200 ml Exam General: The patient is well-developed, Not in acute distress. HEENT: Atraumatic, normocephalic. The pupils are equal and round . Neck: Supple with full range of motion. Chest: Normal expansion of the thorax during inspiration Lungs: Clear to auscultation bilaterally Heart: Normal S1-S2, Regular rhythm and rate. Abdomen: Soft , nontender, nondistended , bowel sounds are present. Extremities: Normal to inspection, no edema no cyanosis Neurologic: Normal mental status,The patient is awake, alert and oriented . Medications Medications Current Medications Acetaminophen/ Hydrocodone Bitart ([place] (5/325)) 1 tab Q4H PRN PO PAIN LEVEL 1 -5; Start 04/06/16 at 16:30; Status Future hold Acetaminophen/ Hydrocodone Bitart ([place] (5/325)) 2 tab Q4H PRN PO PAIN LEVEL 6 -10 Last administered on 04/17/16 10:08; Admin Dose 2 TAB; Start 04/06/16 at 16 :30; Status Future hold Prochlorperazine (Compazine) 10 mg Q4H PRN PO NAUSEA AND/OR VOMITING; Start at 16:30 Ondansetron HCl (Zofran Inj) 4 mg Q6H PRN IV NAUSEA AND/OR VOMITING; Start at 16:30 Al Hydrox/Mg Hydrox/Simethicone (Mag-Al Plus) 15 ml Q4H PRN PO CONSTIPATION Last administered on 04/12/16 17:36; Admin Dose 15 ML; Start 04/06/16 at 16:30 Docusate Sodium (Colace) 100 mg BID PO Last administered on 04/17/16 08:38; Admin Dose 100 MG; Start 04/07/16 at 09:00 Naloxone HCl (Narcan) 0.2 mg Q2M PRN IV RR 8 BREATHS/MIN OR LESS; Start at 16:30 Atenolol (Tenormin) 25 mg DAILY PO Last administered on 04/17/16 08:38; Admin Dose 25 MG; Start 04/07/16 at 09:00 Cyclobenzaprine HCl (Flexeril) 10 mg TID PRN PO MUSCLE SPASMS Last administered on 04/15/16 08:34; Admin Dose 10 MG; Start 04/06/16 at 22:00 Amlodipine Besylate (Norvasc) 5 mg DAILY PO Last administered on 04/17/16 08: 37; Admin Dose 5 MG; Start 04/07/16 at 09:00 Atorvastatin Calcium (Lipitor) 40 mg QHS PO Last administered on 04/16/16 20: 06; Admin Dose 40 MG; Start 04/07/16 at 21:00 Tamsulosin HCl (Flomax) 0.8 mg HS PO Last administered on 04/16/16 20:06; Admin Dose 0.8 MG; Start 04/07/16 at 21:00 Calcium Carbonate (Tums) 500 mg Q8 PRN PO HEARTBURN Last administered on 16:32; Admin Dose 500 MG; Start 04/08/16 at 16:00 Oxycodone/ Acetaminophen (Endocet (10 325)) 1 tab Q4H PRN PO PAIN Last administered on 04/09/16 20:23; Admin Dose 1 TAB; Start 04/09/16 at 11:30 Senna/Docusate Sodium (Senokot-S) 1 tab BID PRN PO constipation Last administered on 04/10/16 10:18; Admin Dose 1 TAB; Start 04/09/16 at 13:30 Patient Own Medication 1 ea DAILY PO Last administered on 04/15/16 08:25; Admin Dose 1 EA; Start 04/10/16 at 09:00 Enoxaparin Sodium (Lovenox) 40 mg DAILY SC Last administered on 04/17/16 08:43 ; Admin Dose 40 MG; Start 04/12/16 at 09:00 Ranitidine HCl (Zantac) 150 mg BID PO Last administered on 04/17/16 08:37; Admin Dose 150 MG; Start 04/15/16 at 21:00 JANET MELISSA MD Apr 17, 2016 14:13
--- NOTE | 2016-04-17 16:32 | PN ---
Date/Time of Note Date/Time of Note DATE: 04/17/16 TIME: 16:28 Assessment/Plan VTE Prophylaxis VTE Prophylaxis Intervention: LMWH Lines/Catheters IV Catheter Type (from Nrsg): Saline Lock Urinary Cath still in place: No Subjective 24 Hr Interval Summary Free Text/Dictation still attempting to find placement, in the meantime he is amb well with therapy but still not able to get up and down from bed etc gi sx ok with zantac still numbness back of thighs and legs and some in groin, no calf tenderness lungs clear, hr ok, abd obesity can raise legs about a foot luing flat will change to oral anticoagulants when ok with surgeon Exam/Review of Systems Vital Signs Vitals Vital Signs Date Time Temp Pulse Resp B/P Pulse Ox O2 Delivery O2 Flow Rate FiO2 04/17/16 07:00 98.7 84 18 135/83 98 Intake and Output 04/16/16 04/16/16 04/17/16 15:00 23:00 07:00 Intake Total 600 ml Output Total 800 ml Balance -200 ml Medications Medications Current Medications Acetaminophen/ Hydrocodone Bitart ([place] (5/325)) 1 tab Q4H PRN PO PAIN LEVEL 1 -5; Start 04/06/16 at 16:30; Status Future hold Acetaminophen/ Hydrocodone Bitart ([place] (5/325)) 2 tab Q4H PRN PO PAIN LEVEL 6 -10 Last administered on 04/17/16 14:59; Admin Dose 2 TAB; Start 04/06/16 at 16 :30; Status Future hold Prochlorperazine (Compazine) 10 mg Q4H PRN PO NAUSEA AND/OR VOMITING; Start at 16:30 Ondansetron HCl (Zofran Inj) 4 mg Q6H PRN IV NAUSEA AND/OR VOMITING; Start at 16:30 Al Hydrox/Mg Hydrox/Simethicone (Mag-Al Plus) 15 ml Q4H PRN PO CONSTIPATION Last administered on 04/12/16 17:36; Admin Dose 15 ML; Start 04/06/16 at 16:30 Docusate Sodium (Colace) 100 mg BID PO Last administered on 04/17/16 08:38; Admin Dose 100 MG; Start 04/07/16 at 09:00 Naloxone HCl (Narcan) 0.2 mg Q2M PRN IV RR 8 BREATHS/MIN OR LESS; Start at 16:30 Atenolol (Tenormin) 25 mg DAILY PO Last administered on 04/17/16 08:38; Admin Dose 25 MG; Start 04/07/16 at 09:00 Cyclobenzaprine HCl (Flexeril) 10 mg TID PRN PO MUSCLE SPASMS Last administered on 04/15/16 08:34; Admin Dose 10 MG; Start 04/06/16 at 22:00 Amlodipine Besylate (Norvasc) 5 mg DAILY PO Last administered on 04/17/16 08: 37; Admin Dose 5 MG; Start 04/07/16 at 09:00 Atorvastatin Calcium (Lipitor) 40 mg QHS PO Last administered on 04/16/16 20: 06; Admin Dose 40 MG; Start 04/07/16 at 21:00 Tamsulosin HCl (Flomax) 0.8 mg HS PO Last administered on 04/16/16 20:06; Admin Dose 0.8 MG; Start 04/07/16 at 21:00 Calcium Carbonate (Tums) 500 mg Q8 PRN PO HEARTBURN Last administered on 16:32; Admin Dose 500 MG; Start 04/08/16 at 16:00 Oxycodone/ Acetaminophen (Endocet (10/ 325)) 1 tab Q4H PRN PO PAIN Last administered on 04/09/16 20:23; Admin Dose 1 TAB; Start 04/09/16 at 11:30 Senna/Docusate Sodium (Senokot-S) 1 tab BID PRN PO constipation Last administered on 04/10/16 10:18; Admin Dose 1 TAB; Start 04/09/16 at 13:30 Patient Own Medication 1 ea DAILY PO Last administered on 04/15/16 08:25; Admin Dose 1 EA; Start 04/10/16 at 09:00 Enoxaparin Sodium (Lovenox) 40 mg DAILY SC Last administered on 04/17/16 08:43 ; Admin Dose 40 MG; Start 04/12/16 at 09:00 Ranitidine HCl (Zantac) 150 mg BID PO Last administered on 04/17/16 08:37; Admin Dose 150 MG; Start 04/15/16 at 21:00 TROY MURPHY MD Apr 17, 2016 16:32
[2016-04-17 19:54] VITALS: BP 135/76; RESP 18
[2016-04-17] MEDS: CYCLOBENZAPRINE 10 MG TAB PO PRN (20:20)
[2016-04-17] MEDS: ATORVASTATIN 40 MG TAB PO SCH (20:20)
[2016-04-17] MEDS: TAMSULOSIN (SR) 0.4 MG CAP PO SCH (20:20)
[2016-04-18] MEDS: HYDROCODONE/APAP (5/325) TAB PO PRN ×4 (04:46→20:27)
[2016-04-18 07:49] VITALS: BP 140/77; RESP 20
[2016-04-18] MEDS: RANITIDINE 150 MG TAB PO SCH ×2 (08:51→20:25)
[2016-04-18] MEDS: DOCUSATE SODIUM 100 MG CAP PO SCH ×2 (08:51→20:25)
[2016-04-18] MEDS: ATENOLOL 25 MG TAB PO SCH ×2 (08:52→20:26)
[2016-04-18] MEDS: AMLODIPINE 5 MG TAB PO SCH (08:52)
[2016-04-18] MEDS: OMEPRAZOLE PO SCH (08:53)
[2016-04-18] MEDS: ENOXAPARIN 40 MG/0.4 ML SYG SC SCH (09:03)
--- NOTE | 2016-04-18 09:08 | PN ---
Date/Time of Note Date/Time of Note DATE: 04/18/16 TIME: 09:07 Assessment/Plan VTE Prophylaxis VTE Prophylaxis Intervention: SCD's Lines/Catheters IV Catheter Type (from Nrs): Saline Lock Urinary Cath still in place: No Assessment/Plan Chief Complaint/Hosp Course Assessment/Plan 1. 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 s/p Aortic valve replacement, bioprosthetic, stable, restart anticoagulation if cleared by orthopedic surgeon 3. Epigastric pain, better on protonix 4. Hypertension, stable 5. Dyslipidemia, on statin 6. BPH, on flomax, d/c Victor 7. Obesity with BMI of 3 At this time patient is stable medically to be discharge Follow-up with orthopedic surgeon as outpatient as per his recommendations Plan to discharge home feet [facility] on 04/20/2016 Problems: Subjective 24 Hr Interval Summary Free Text/Dictation Patient denies of any chest pain or shortness of breath Able to ambulate with minimal assist/contact-guard No nausea vomiting diarrhea Denies of any low back pain Exam/Review of Systems Vital Signs Vitals Vital Signs Date Time Temp Pulse Resp B/P Pulse Ox O2 Delivery O2 Flow Rate FiO2 04/18/16 07:49 98.0 93 20 140/77 97 Intake and Output 04/17/16 04/17/16 04/18/16 15:00 23:00 07:00 Intake Total 1040 ml 800 ml Output Total 1550 ml 2050 ml Balance -510 ml -1250 ml Exam General: The patient is well-developed, Not in acute distress. HEENT: Atraumatic, normocephalic. The pupils are equal and round . Neck: Supple with full range of motion. Chest: Normal expansion of the thorax during inspiration Lungs: Clear to auscultation bilaterally Heart: Normal S1-S2, Regular rhythm and rate. Abdomen: Soft , nontender, nondistended , bowel sounds are present. Extremities: Normal to inspection, no edema no cyanosis Neurologic: Normal mental status,The patient is awake, alert and oriented . Medications Medications Current Medications Acetaminophen/ Hydrocodone Bitart ([place] (5/325)) 1 tab Q4H PRN PO PAIN LEVEL 1 -5; Start 04/06/16 at 16:30; Status Future hold Acetaminophen/ Hydrocodone Bitart ([place] (5/325)) 2 tab Q4H PRN PO PAIN LEVEL 6 -10 Last administered on 04/18/16 08:56; Admin Dose 2 TAB; Start 04/06/16 at 16 :30; Status Future hold Prochlorperazine (Compazine) 10 mg Q4H PRN PO NAUSEA AND/OR VOMITING; Start at 16:30 Ondansetron HCl (Zofran Inj) 4 mg Q6H PRN IV NAUSEA AND/OR VOMITING; Start at 16:30 Al Hydrox/Mg Hydrox/Simethicone (Mag-Al Plus) 15 ml Q4H PRN PO CONSTIPATION Last administered on 04/12/16 17:36; Admin Dose 15 ML; Start 04/06/16 at 16:30 Docusate Sodium (Colace) 100 mg BID PO Last administered on 04/18/16 08:51; Admin Dose 100 MG; Start 04/07/16 at 09:00 Naloxone HCl (Narcan) 0.2 mg Q2M PRN IV RR 8 BREATHS/MIN OR LESS; Start at 16:30 Atenolol (Tenormin) 25 mg DAILY PO Last administered on 04/18/16 08:52; Admin Dose 25 MG; Start 04/07/16 at 09:00 Cyclobenzaprine HCl (Flexeril) 10 mg TID PRN PO MUSCLE SPASMS Last administered on 04/17/16 20:20; Admin Dose 10 MG; Start 04/06/16 at 22:00 Amlodipine Besylate (Norvasc) 5 mg DAILY PO Last administered on 04/18/16 08: 52; Admin Dose 5 MG; Start 04/07/16 at 09:00 Atorvastatin Calcium (Lipitor) 40 mg QHS PO Last administered on 04/17/16 20: 20; Admin Dose 40 MG; Start 04/07/16 at 21:00 Tamsulosin HCl (Flomax) 0.8 mg HS PO Last administered on 04/17/16 20:20; Admin Dose 0.8 MG; Start 04/07/16 at 21:00 Calcium Carbonate (Tums) 500 mg Q8 PRN PO HEARTBURN Last administered on 16:32; Admin Dose 500 MG; Start 04/08/16 at 16:00 Oxycodone/ Acetaminophen (Endocet (10/ 325)) 1 tab Q4H PRN PO PAIN Last administered on 04/09/16 20:23; Admin Dose 1 TAB; Start 04/09/16 at 11:30 Senna/Docusate Sodium (Senokot-S) 1 tab BID PRN PO constipation Last administered on 04/10/16 10:18; Admin Dose 1 TAB; Start 04/09/16 at 13:30 Patient Own Medication 1 ea DAILY PO Last administered on 04/15/16 08:25; Admin Dose 1 EA; Start 04/10/16 at 09:00 Enoxaparin Sodium (Lovenox) 40 mg DAILY SC Last administered on 04/18/16 09:03 ; Admin Dose 40 MG; Start 04/12/16 at 09:00 Ranitidine HCl (Zantac) 150 mg BID PO Last administered on 04/18/16 08:51; Admin Dose 150 MG; Start 04/15/16 at 21:00 JANET MELISSA MD Apr 18, 2016 09:08
--- NOTE | 2016-04-18 12:32 | PN ---
Date/Time of Note Date/Time of Note DATE: 04/18/16 TIME: 12:28 Assessment/Plan VTE Prophylaxis VTE Prophylaxis Intervention: LMWH Lines/Catheters IV Catheter Type (from [facility]): Saline Lock Urinary Cath still in place: No Assessment/Plan Problems: (1) Enlarged prostate with lower urinary tract symptoms (LUTS) Status: Chronic Comment: Controlled, cont. tamsulosin (2) Essential (primary) hypertension Status: Chronic Comment: Controlled, cont. current antihypertensive regimen (3) Hyperlipidemia Status: Chronic Comment: Controlled, cont. statin (4) Gastro-esophageal reflux disease without esophagitis Status: Chronic Comment: Cont. PPI (5) Aftercare following surgery of the musculoskeletal system Status: Acute Comment: Doing well. Awaiting placement with a home health to improve self- care. Too high functioning for rehab Subjective 24 Hr Interval Summary Respiratory: no complaints Cardiovascular: chest pain (attributes to h/p heart surgery and laying on chest during this surgery) Gastrointestinal: no complaints Genitourinary: no complaints Musculoskeletal: back pain (hard to twist or bend which exacerbates his pain-- makes it hard to wipe after going to the bathroom) Neurologic: no complaints Exam/Review of Systems Vital Signs Vitals VS - Last 72 Hours, by Label Date Time Temp Pulse Resp B/P Pulse Ox O2 Delivery O2 Flow Rate FiO2 04/18/16 07:49 98.0 93 20 140/77 97 04/17/16 19:54 98.2 81 18 135/76 90 04/17/16 07:00 98.7 84 18 135/83 98 04/16/16 19:00 98.0 85 18 133/67 97 04/16/16 07:50 97.6 85 16 143/80 97 04/15/16 19:47 98.6 18 137/69 98 Vital Signs Date Time Temp Pulse Resp B/P Pulse Ox O2 Delivery O2 Flow Rate FiO2 04/18/16 07:49 98.0 93 20 140/77 97 Intake and Output 04/17/16 04/17/16 04/18/16 15:00 23:00 07:00 Intake Total 1040 ml 800 ml Output Total 1550 ml 2050 ml Balance -510 ml -1250 ml Exam Constitutional: alert, obese, oriented Respiratory: clear to auscultation, normal air movement Cardiovascular: nl pulses, regular rate and rhythm, No edema, No murmurs/extra sounds, No rub Gastrointestinal: bowel sounds, nl liver, spleen, non-tender, soft, No mass, No rebound or guarding Musculoskeletal: nl extremities to inspection Extremities: normal pulses, No clubbing, No cyanosis, No edema Neurological: BIOINFORMATICS DEVELOPER II-XII intact, nl mental status, nl speech, nl strength Medications Medications Current Medications Acetaminophen/ Hydrocodone Bitart ([place] (5/325)) 1 tab Q4H PRN PO PAIN LEVEL 1 -5; Start 04/06/16 at 16:30; Status Future hold Acetaminophen/ Hydrocodone Bitart ([place] (5/325)) 2 tab Q4H PRN PO PAIN LEVEL 6 -10 Last administered on 04/18/16 08:56; Admin Dose 2 TAB; Start 04/06/16 at 16 :30; Status Future hold Prochlorperazine (Compazine) 10 mg Q4H PRN PO NAUSEA AND/OR VOMITING; Start at 16:30 Ondansetron HCl (Zofran Inj) 4 mg Q6H PRN IV NAUSEA AND/OR VOMITING; Start at 16:30 Al Hydrox/Mg Hydrox/Simethicone (Mag-Al Plus) 15 ml Q4H PRN PO CONSTIPATION Last administered on 04/12/16 17:36; Admin Dose 15 ML; Start 04/06/16 at 16:30 Docusate Sodium (Colace) 100 mg BID PO Last administered on 04/18/16 08:51; Admin Dose 100 MG; Start 04/07/16 at 09:00 Naloxone HCl (Narcan) 0.2 mg Q2M PRN IV RR 8 BREATHS/MIN OR LESS; Start at 16:30 Cyclobenzaprine HCl (Flexeril) 10 mg TID PRN PO MUSCLE SPASMS Last administered on 04/17/16 20:20; Admin Dose 10 MG; Start 04/06/16 at 22:00 Amlodipine Besylate (Norvasc) 5 mg DAILY PO Last administered on 04/18/16 08: 52; Admin Dose 5 MG; Start 04/07/16 at 09:00 Atorvastatin Calcium (Lipitor) 40 mg QHS PO Last administered on 04/17/16 20: 20; Admin Dose 40 MG; Start 04/07/16 at 21:00 Tamsulosin HCl (Flomax) 0.8 mg HS PO Last administered on 04/17/16 20:20; Admin Dose 0.8 MG; Start 04/07/16 at 21:00 Calcium Carbonate (Tums) 500 mg Q8 PRN PO HEARTBURN Last administered on 16:32; Admin Dose 500 MG; Start 04/08/16 at 16:00 Oxycodone/ Acetaminophen (Endocet (10 325)) 1 tab Q4H PRN PO PAIN Last administered on 04/09/16 20:23; Admin Dose 1 TAB; Start 04/09/16 at 11:30 Senna/Docusate Sodium (Senokot-S) 1 tab BID PRN PO constipation Last administered on 04/10/16 10:18; Admin Dose 1 TAB; Start 04/09/16 at 13:30 Patient Own Medication 1 ea DAILY PO Last administered on 04/15/16 08:25; Admin Dose 1 EA; Start 04/10/16 at 09:00 Enoxaparin Sodium (Lovenox) 40 mg DAILY SC Last administered on 04/18/16 09:03 ; Admin Dose 40 MG; Start 04/12/16 at 09:00 Ranitidine HCl (Zantac) 150 mg BID PO Last administered on 04/18/16 08:51; Admin Dose 150 MG; Start 04/15/16 at 21:00 Atenolol (Tenormin) 25 mg BID PO ; Start 04/18/16 at 21:00 JERO PAVON MD Apr 18, 2016 12:32
[2016-04-18 19:10] VITALS: BP 126/64; RESP 20
[2016-04-18] MEDS: ATORVASTATIN 40 MG TAB PO SCH (20:25)
[2016-04-18] MEDS: TAMSULOSIN (SR) 0.4 MG CAP PO SCH (20:25)
[2016-04-19] MEDS: HYDROCODONE/APAP (5/325) TAB PO PRN ×5 (03:11→22:12)
[2016-04-19 07:41] VITALS: BP 147/72; RESP 19
[2016-04-19] MEDS: ATENOLOL 25 MG TAB PO SCH ×2 (08:26→20:45)
[2016-04-19] MEDS: RANITIDINE 150 MG TAB PO SCH ×2 (08:26→20:44)
[2016-04-19] MEDS: AMLODIPINE 5 MG TAB PO SCH (08:26)
[2016-04-19] MEDS: OMEPRAZOLE PO SCH (08:26)
[2016-04-19] MEDS: DOCUSATE SODIUM 100 MG CAP PO SCH ×2 (08:26→20:44)
[2016-04-19] MEDS: ENOXAPARIN 40 MG/0.4 ML SYG SC SCH (09:26)
--- NOTE | 2016-04-19 10:05 | PN ---
Date/Time of Note Date/Time of Note DATE: 04/19/16 TIME: 10:03 Assessment/Plan VTE Prophylaxis VTE Prophylaxis Intervention: SCD's Lines/Catheters IV Catheter Type (from Nrs): Saline Lock Urinary Cath still in place: No Assessment/Plan Chief Complaint/Hosp Course Assessment/Plan 1. 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 s/p Aortic valve replacement, bioprosthetic, stable, restart anticoagulation if cleared by orthopedic surgeon 3. Epigastric pain, better on protonix 4. Hypertension, stable 5. Dyslipidemia, on statin 6. BPH, on flomax, d/c Victor 7. Obesity with BMI of 3 At this time patient is stable medically to be discharge Follow-up with orthopedic surgeon as outpatient as per his recommendations Plan to discharge home [facility] on 04/20/2016 Problems: Subjective 24 Hr Interval Summary Free Text/Dictation Patient denies of any chest pain or shortness of breath Continues to complain of having minimal back pain No nausea vomiting diarrhea Tolerating oral intake Exam/Review of Systems Vital Signs Vitals Vital Signs Date Time Temp Pulse Resp B/P Pulse Ox O2 Delivery O2 Flow Rate FiO2 04/19/16 07:41 97.6 79 19 147/72 96 Intake and Output 04/18/16 04/18/16 04/19/16 15:00 23:00 07:00 Intake Total 1360 ml 620 ml Output Total 1150 ml 1550 ml Balance 210 ml -930 ml Exam General: The patient is well-developed, Not in acute distress. HEENT: Atraumatic, normocephalic. The pupils are equal and round . Neck: Supple with full range of motion. Chest: Normal expansion of the thorax during inspiration Lungs: Clear to auscultation bilaterally Heart: Normal S1-S2, Regular rhythm and rate. Abdomen: Soft , nontender, nondistended , bowel sounds are present. Extremities: Normal to inspection, no edema no cyanosis Neurologic: Normal mental status,The patient is awake, alert and oriented . Medications Medications Current Medications Acetaminophen/ Hydrocodone Bitart ([place] (5/325)) 1 tab Q4H PRN PO PAIN LEVEL 1 -5; Start 04/06/16 at 16:30; Status Future hold Acetaminophen/ Hydrocodone Bitart ([place] (5/325)) 2 tab Q4H PRN PO PAIN LEVEL 6 -10 Last administered on 04/19/16 07:32; Admin Dose 2 TAB; Start 04/06/16 at 16 :30; Status Future hold Prochlorperazine (Compazine) 10 mg Q4H PRN PO NAUSEA AND/OR VOMITING; Start at 16:30 Ondansetron HCl (Zofran Inj) 4 mg Q6H PRN IV NAUSEA AND/OR VOMITING; Start at 16:30 Al Hydrox/Mg Hydrox/Simethicone (Mag-Al Plus) 15 ml Q4H PRN PO CONSTIPATION Last administered on 04/12/16 17:36; Admin Dose 15 ML; Start 04/06/16 at 16:30 Docusate Sodium (Colace) 100 mg BID PO Last administered on 04/19/16 08:26; Admin Dose 100 MG; Start 04/07/16 at 09:00 Naloxone HCl (Narcan) 0.2 mg Q2M PRN IV RR 8 BREATHS/MIN OR LESS; Start at 16:30 Cyclobenzaprine HCl (Flexeril) 10 mg TID PRN PO MUSCLE SPASMS Last administered on 04/17/16 20:20; Admin Dose 10 MG; Start 04/06/16 at 22:00 Amlodipine Besylate (Norvasc) 5 mg DAILY PO Last administered on 04/19/16 08: 26; Admin Dose 5 MG; Start 04/07/16 at 09:00 Atorvastatin Calcium (Lipitor) 40 mg QHS PO Last administered on 04/18/16 20: 25; Admin Dose 40 MG; Start 04/07/16 at 21:00 Tamsulosin HCl (Flomax) 0.8 mg HS PO Last administered on 04/18/16 20:25; Admin Dose 0.8 MG; Start 04/07/16 at 21:00 Calcium Carbonate (Tums) 500 mg Q8 PRN PO HEARTBURN Last administered on 16:32; Admin Dose 500 MG; Start 04/08/16 at 16:00 Oxycodone/ Acetaminophen (Endocet (10 325)) 1 tab Q4H PRN PO PAIN Last administered on 04/09/16 20:23; Admin Dose 1 TAB; Start 04/09/16 at 11:30 Senna/Docusate Sodium (Senokot-S) 1 tab BID PRN PO constipation Last administered on 04/10/16 10:18; Admin Dose 1 TAB; Start 04/09/16 at 13:30 Patient Own Medication 1 ea DAILY PO Last administered on 04/15/16 08:25; Admin Dose 1 EA; Start 04/10/16 at 09:00 Enoxaparin Sodium (Lovenox) 40 mg DAILY SC Last administered on 04/19/16 09:26 ; Admin Dose 40 MG; Start 04/12/16 at 09:00 Ranitidine HCl (Zantac) 150 mg BID PO Last administered on 04/19/16 08:26; Admin Dose 150 MG; Start 04/15/16 at 21:00 Atenolol (Tenormin) 25 mg BID PO Last administered on 04/19/16 08:26; Admin Dose 25 MG; Start 04/18/16 at 21:00 JANET MELISSA MD Apr 19, 2016 10:05
--- NOTE | 2016-04-19 10:57 | PN ---
Date/Time of Note Date/Time of Note DATE: 04/19/16 TIME: 10:54 Assessment/Plan VTE Prophylaxis VTE Prophylaxis Intervention: ambulation Lines/Catheters [facility] Saline Lock Urinary Cath still in place: No Assessment/Plan Problems: (1) Essential (primary) hypertension Status: Chronic Comment: Good control. Cont. anti-hypertensive regimen (2) Vitamin D deficiency Status: Chronic Comment: Start VitD3 2,000 IU/d. (3) Aftercare following surgery of the musculoskeletal system Status: Acute Comment: Doing well post-op. If able to ambulate and continue to perform ADL's , should be able to be d/c'ed home. Await home health. Subjective 24 Hr Interval Summary Constitutional: improved, no complaints Respiratory: no complaints Cardiovascular: no complaints Gastrointestinal: no complaints Genitourinary: no complaints Musculoskeletal: back pain (reduced vs. yesterday. Pt. more able to twist and bend to clean self after BM) Neurologic: no complaints Exam/Review of Systems Vital Signs Vitals VS - Last 72 Hours, by Label Date Time Temp Pulse Resp B/P Pulse Ox O2 Delivery O2 Flow Rate FiO2 04/19/16 07:41 97.6 79 19 147/72 96 04/18/16 19:10 98.0 91 20 126/64 96 04/18/16 07:49 98.0 93 20 140/77 97 04/17/16 19:54 98.2 81 18 135/76 90 04/17/16 07:00 98.7 84 18 135/83 98 04/16/16 19:00 98.0 85 18 133/67 97 Vital Signs Date Time Temp Pulse Resp B/P Pulse Ox O2 Delivery O2 Flow Rate FiO2 04/19/16 07:41 97.6 79 19 147/72 96 Intake and Output 04/18/16 04/18/16 04/19/16 15:00 23:00 07:00 Intake Total 1360 ml 620 ml Output Total 1150 ml 1550 ml Balance 210 ml -930 ml Exam Constitutional: alert, obese, oriented Psych: nl mood/affect, no complaints Respiratory: clear to auscultation, normal air movement Cardiovascular: nl pulses, regular rate and rhythm, No edema, No murmurs/extra sounds, No rub Gastrointestinal: bowel sounds, nl liver, spleen, non-tender, soft, No mass, No rebound or guarding Musculoskeletal: nl extremities to inspection, nl gait and stance Extremities: normal pulses, No clubbing, No cyanosis, No edema Neurological: BUSINESS SOLUTIONS DIRECTOR II-XII intact, nl mental status, nl speech, nl strength Medications Medications Current Medications Acetaminophen/ Hydrocodone Bitart ([place] (5/325)) 1 tab Q4H PRN PO PAIN LEVEL 1 -5; Start 04/06/16 at 16:30; Status Future hold Acetaminophen/ Hydrocodone Bitart ([place] (5/325)) 2 tab Q4H PRN PO PAIN LEVEL 6 -10 Last administered on 04/19/16 07:32; Admin Dose 2 TAB; Start 04/06/16 at 16 :30; Status Future hold Prochlorperazine (Compazine) 10 mg Q4H PRN PO NAUSEA AND/OR VOMITING; Start at 16:30 Ondansetron HCl (Zofran Inj) 4 mg Q6H PRN IV NAUSEA AND/OR VOMITING; Start at 16:30 Al Hydrox/Mg Hydrox/Simethicone (Mag-Al Plus) 15 ml Q4H PRN PO CONSTIPATION Last administered on 04/12/16 17:36; Admin Dose 15 ML; Start 04/06/16 at 16:30 Docusate Sodium (Colace) 100 mg BID PO Last administered on 04/19/16 08:26; Admin Dose 100 MG; Start 04/07/16 at 09:00 Naloxone HCl (Narcan) 0.2 mg Q2M PRN IV RR 8 BREATHS/MIN OR LESS; Start at 16:30 Cyclobenzaprine HCl (Flexeril) 10 mg TID PRN PO MUSCLE SPASMS Last administered on 04/17/16 20:20; Admin Dose 10 MG; Start 04/06/16 at 22:00 Amlodipine Besylate (Norvasc) 5 mg DAILY PO Last administered on 04/19/16 08: 26; Admin Dose 5 MG; Start 04/07/16 at 09:00 Atorvastatin Calcium (Lipitor) 40 mg QHS PO Last administered on 04/18/16 20: 25; Admin Dose 40 MG; Start 04/07/16 at 21:00 Tamsulosin HCl (Flomax) 0.8 mg HS PO Last administered on 04/18/16 20:25; Admin Dose 0.8 MG; Start 04/07/16 at 21:00 Calcium Carbonate (Tums) 500 mg Q8 PRN PO HEARTBURN Last administered on 16:32; Admin Dose 500 MG; Start 04/08/16 at 16:00 Oxycodone/ Acetaminophen (Endocet (10/ 325)) 1 tab Q4H PRN PO PAIN Last administered on 04/09/16 20:23; Admin Dose 1 TAB; Start 04/09/16 at 11:30 Senna/Docusate Sodium (Senokot-S) 1 tab BID PRN PO constipation Last administered on 04/10/16 10:18; Admin Dose 1 TAB; Start 04/09/16 at 13:30 Patient Own Medication 1 ea DAILY PO Last administered on 04/15/16 08:25; Admin Dose 1 EA; Start 04/10/16 at 09:00 Enoxaparin Sodium (Lovenox) 40 mg DAILY SC Last administered on 04/19/16 09:26 ; Admin Dose 40 MG; Start 04/12/16 at 09:00 Ranitidine HCl (Zantac) 150 mg BID PO Last administered on 04/19/16 08:26; Admin Dose 150 MG; Start 04/15/16 at 21:00 Atenolol (Tenormin) 25 mg BID PO Last administered on 04/19/16 08:26; Admin Dose 25 MG; Start 04/18/16 at 21:00 JERO PAVON MD Apr 19, 2016 10:57
[2016-04-19] MEDS: CHOLECALCIFEROL 2,000 UNIT CAP PO SCH (11:09)
[2016-04-19 19:32] VITALS: BP 132/73; RESP 18
[2016-04-19] MEDS: ATORVASTATIN 40 MG TAB PO SCH (20:44)
[2016-04-19] MEDS: TAMSULOSIN (SR) 0.4 MG CAP PO SCH (20:44)
[2016-04-20] MEDS: HYDROCODONE/APAP (5/325) TAB PO PRN ×3 (02:27→14:18)
[2016-04-20 08:00] VITALS: BP 130/69; RESP 18
[2016-04-20] MEDS: CHOLECALCIFEROL 2,000 UNIT CAP PO SCH (08:42)
[2016-04-20] MEDS: DOCUSATE SODIUM 100 MG CAP PO SCH (08:42)
[2016-04-20] MEDS: RANITIDINE 150 MG TAB PO SCH (08:42)
[2016-04-20] MEDS: ATENOLOL 25 MG TAB PO SCH (08:42)
[2016-04-20] MEDS: ENOXAPARIN 40 MG/0.4 ML SYG SC SCH (08:43)
[2016-04-20] MEDS: AMLODIPINE 5 MG TAB PO SCH (08:43)
[2016-04-20] MEDS: OMEPRAZOLE PO SCH (09:00)
--- NOTE | 2016-04-20 15:54 | PN ---
Date/Time of Note Date/Time of Note DATE: 04/20/16 TIME: 15:51 Assessment/Plan VTE Prophylaxis VTE Prophylaxis Intervention: SCD's Lines/Catheters IV Catheter Type (from Nrs): Saline Lock Urinary Cath still in place: No Assessment/Plan Chief Complaint/Hosp Course Assessment and plan 1. L3-S1 spinal stenosis s/p minimally invasive Laminectomies. Continue with physical therapy and analgesics as needed. Continue with orthopedic surgeon recommendations 2. s/p Aortic valve replacement, bioprosthetic, patient does report he does follow-up with cylinder valve repairer as outpatient and has been off Coumadin since summer 2015. Anticoagulation to be resumed. 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 Epigastric pain. Stable at present. Continue on PPI 4. Hypertension. We'll provide with antihypertensives for systolic greater than 160 5. Dyslipidemia. Continue on statin medication 6. BPH. Continue on Flomax 7. Obesity. Weight reduction advised Disposition and plan: Appears stable at present. Discharge planning Discussed but of care with Dr. Huertas Problems: Subjective 24 Hr Interval Summary Free Text/Dictation Comfortable at present. No apparent distress Exam/Review of Systems Vital Signs Vitals Vital Signs Date Time Temp Pulse Resp B/P Pulse Ox O2 Delivery O2 Flow Rate FiO2 04/20/16 08:00 98.2 68 18 130/69 96 Intake and Output 04/19/16 04/19/16 04/20/16 15:00 23:00 07:00 Intake Total 900 ml 1200 ml Output Total 1200 ml 2300 ml Balance -300 ml -1100 ml Exam General: No acute signs or symptoms of distress Eyes: pupils equal round, Anicteric sclera Neck: Supple nontender, no JVD Cardiac: S1, S2 auscultated, regular rhythm and rate Pulmonary: No coarse rhonchi or breathing auscultated GI: Abdomen soft nontender nondistended, bowel sounds active Extremities: No edema bilateral lower extremities Skin: Clean dry and intact Neurologic: Alert to person place and time and situation Medications Medications Current Medications Acetaminophen/ Hydrocodone Bitart ([place] (5/325)) 1 tab Q4H PRN PO PAIN LEVEL 1 -5; Start 04/06/16 at 16:30; Status Future hold Acetaminophen/ Hydrocodone Bitart ([place] (5/325)) 2 tab Q4H PRN PO PAIN LEVEL 6 -10 Last administered on 04/20/16t 14:18; Admin Dose 2 TAB; Start 04/06/16 at 16 :30; Status Future hold Prochlorperazine (Compazine) 10 mg Q4H PRN PO NAUSEA AND/OR VOMITING; Start at 16:30 Ondansetron HCl (Zofran Inj) 4 mg Q6H PRN IV NAUSEA AND/OR VOMITING; Start at 16:30 Al Hydrox/Mg Hydrox/Simethicone (Mag-Al Plus) 15 ml Q4H PRN PO CONSTIPATION Last administered on 04/12/16 17:36; Admin Dose 15 ML; Start 04/06/16 at 16:30 Docusate Sodium (Colace) 100 mg BID PO Last administered on 04/20/16 08:42; Admin Dose 100 MG; Start 04/07/16 at 09:00 Naloxone HCl (Narcan) 0.2 mg Q2M PRN IV RR 8 BREATHS/MIN OR LESS; Start at 16:30 Cyclobenzaprine HCl (Flexeril) 10 mg TID PRN PO MUSCLE SPASMS Last administered on 04/17/16 20:20; Admin Dose 10 MG; Start 04/06/16 at 22:00 Amlodipine Besylate (Norvasc) 5 mg DAILY PO Last administered on 04/20/16 08: 43; Admin Dose 5 MG; Start 04/07/16 at 09:00 Atorvastatin Calcium (Lipitor) 40 mg QHS PO Last administered on 04/19/16 20: 44; Admin Dose 40 MG; Start 04/07/16 at 21:00 Tamsulosin HCl (Flomax) 0.8 mg HS PO Last administered on 04/19/16 20:44; Admin Dose 0.8 MG; Start 04/07/16 at 21:00 Calcium Carbonate (Tums) 500 mg Q8 PRN PO HEARTBURN Last administered on 16:32; Admin Dose 500 MG; Start 04/08/16 at 16:00 Oxycodone/ Acetaminophen (Endocet (10/ 325)) 1 tab Q4H PRN PO PAIN Last administered on 04/09/16 20:23; Admin Dose 1 TAB; Start 04/09/16 at 11:30 Senna/Docusate Sodium (Senokot-S) 1 tab BID PRN PO constipation Last administered on 04/10/16 10:18; Admin Dose 1 TAB; Start 04/09/16 at 13:30 Patient Own Medication 1 ea DAILY PO Last administered on 04/15/16 08:25; Admin Dose 1 EA; Start 04/10/16 at 09:00 Enoxaparin Sodium (Lovenox) 40 mg DAILY SC Last administered on 04/20/16 08:43 ; Admin Dose 40 MG; Start 04/12/16 at 09:00 Ranitidine HCl (Zantac) 150 mg BID PO Last administered on 04/20/16 08:42; Admin Dose 150 MG; Start 04/15/16 at 21:00 Atenolol (Tenormin) 25 mg BID PO Last administered on 04/20/16 08:42; Admin Dose 25 MG; Start 04/18/16 at 21:00 Cholecalciferol (Vitamin D) 2,000 unit DAILY PO Last administered on 04/20/16 08:42; Admin Dose 2,000 UNIT; Start 04/19/16 at 11:00 AGATHA BALDERAS Apr 20, 2016 15:54
== END 2016-04-20 16:10 | disposition home health service (06) | DRG 519 ==
LOC: REC 05:23 → MS1 17:37
PROVIDERS: ADMIT Specialist; ATTEND Specialist
PROC: 01NB0ZZ Release Lumbar Nerve, Open Approach (ICD-10-PCS; 2016-04-06)
PROC: 00NY0ZZ Release Lumbar Spinal Cord, Open Approach (ICD-10-PCS; principal; 2016-04-06 07:30)
DX: M51.16 Intervertebral disc disorders with radiculopathy, lumbar region (principal); K56.7 Ileus, unspecified; E66.9 Obesity, unspecified; E65 Localized adiposity; Z68.37 Body mass index [BMI] 37.0-37.9, adult; Z95.3 Presence of xenogenic heart valve; R51 Headache; Z87.891 Personal history of nicotine dependence; E78.5 Hyperlipidemia, unspecified; N40.1 Benign prostatic hyperplasia with lower urinary tract symptoms; K21.9 Gastro-esophageal reflux disease without esophagitis; E55.9 Vitamin D deficiency, unspecified; M51.86 Other intervertebral disc disorders, lumbar region
CPT/HCPCS: 72110; 80048; 80053; 81001; 81003; 82306; 83036; 83735; 84100; 84443; 85014; 85018; 85025; 85610; 86850; 86900; 86901; 87086; 93005; 97116; 97163; 97530; C9250; J0330; J0690; J1170; J1644; J1650; J2405; J2710; J2765; J3010; J7120

== ENCOUNTER 2017-04-08 10:25 | Day surgery (SDC) | END 2017-04-08 16:38 | disposition home or self-care (01) ==

== ENCOUNTER 2018-10-06 07:51 | Day surgery (SDC) | payer OTHER ==
[~2018-10-06] VITALS: Ht 170.2 cm; Wt 73.2 kg
[2018-10-06] VITALS (9 sets, daily range): BP systolic 109–136; BP diastolic 64–80; PULSE 57–72; RESP 16–20; Ht 170.2 cm; Wt 73.2 kg
--- NOTE | 2018-10-06 06:00 | HPN ---
Date/Time of Note Date/Time of Note DATE: 10/06/18 TIME: 05:59 Interval H&P Admission Note Pt. seen H&P reviewed: No system changes VICKY BARRERA MD Oct 06, 2018 06:00
--- NOTE | 2018-10-06 06:02 | OPR ---
Date/Time of Note Date/Time of Note DATE: 10/06/18 TIME: 06:00 Operative Report Procedure Date: Oct 06, 2018 Preoperative Diagnosis Left shoulder biceps tendon tear Postoperative Diagnosis 1. Left shoulder biceps tendon tear 2. Left shoulder acromioclavicular joint arthrosis 3. Left shoulder labral tearing Operation/Procedure Performed 1. Left shoulder open biceps tenodesis 2. Left shoulder arthroscopic distal clavicle excision 3. Left shoulder arthroscopic extensive debridement of glenohumeral joint Surgeon see signature line Computer Bookkeeper James Aparicio MD Second Computer Bookkeeper: RODRIGUEZ OLIVEIRA PA-C Anesthesia Type: general Estimated Blood Loss: 0 - 10 ml's Transfusion none Specimen None Grafts/Implants See op note Complications none Pt Condition Post Procedure: stable Disposition: PACU Procedure Description [employer] SUPERVISOR SURGEON: James Aparicio MD was asked to be present at my request as a result of the complexity associated with this procedure including positioning of the extremities, manipulation of the arthroscope and assistance with suture management and implantation of suture anchors. In my opinion, the assistance offered by a surgical coder is insufficient and Dr. Aparicio should be compensated for his time. PROCEDURE IN DETAIL: Following the administration of general anesthesia supplemented with a peripheral nerve block for postoperative pain control, the patient was examined under anesthesia. Examination of the left shoulder revealed a significant deformity of the biceps tendon consistent with a long head tendon tear. This was chronic. In addition, his range of motion was essentially normal. The patient was then placed in the right lateral decubitus position. Sterile prep and drape was then undertaken of the left shoulder. Anterior and posterior glenohumeral portals were established. Glenohumeral arthroscopy revealed that the humeral and glenoid articular cartilage revealed some diffuse grade 2 changes and in the central portion of the humerus there was some mild grade 2 changes also in a diffuse fashion. There was some mild softening i. The superior labrum was diffusely torn with extensive fraying that extended from 9:00 to the 3 o'clock position. The biceps had been previously released. The intra-articular portion was deficient. This was not evident. The subscapularis was visualized and this was normal. No abnormalities are noted anteriorly with the exception of the very severe synovitis which was actually in the notch itself. Further evaluation of the supraspinatus revealed no significant pathology. Specifically, there was no tearing. The superior labrum then debrided extensively from the 9:00 to the 3 o'clock position was undertaken down to stable tissue. Severe synovitis was also debrided down to stable tissue. The subacromial space was then entered and very severe bursal reactive tissue was noted. There is moderate anterior thickening of the coracoacromial ligament with no significant impingement there. The outer surface of the rotator cuff was then inspected. The rotator cuff was intact. There was only some mild scuffing of the lateral tendon. The subacromial space was then further evaluated medially. The acromioclavicular joint was then skeletonized and a significant inferior osteophyte was noted. The AC joint capsule was then opened and the distal clavicle was skeletonized for a distance of 10 mm. The rajendra was then inserted and 10 mm of the distal clavicle were then excised. The biceps tear was then addressed. The traction was removed and the arm kept sterile. An incision was then made over the medial arm, along where the biceps was evidently torn. The incision was carried through the area to expose the biceps tendon, which was retracted. The area of the tear was then cleared of s oft tissue and a 5.5 mm triple loaded anchor was inserted. This was then used to advance the biceps about 1 cm, recreating the tension. the wound was irrigated and closed with 2-0 and 4-0 suture, followed by a Prenio dressing. The arthroscopy portals were closed using 4-0 Monocryl, followed by a sterile dressing. A sling was then applied. The patient was awakened and transported to the recovery room in stable condition. VICKY BARRERA MD Oct 06, 2018 06:02
[~2018-10-06 07:51] MED LIST changes: +ASPI81TA52 PO; -ATEN-51 PO; -ATOR40TA68 PO; +BUPIVACAINE 0.5% (SDV) 30 ML, morphine SULFATE (PF) 8 MG, EPINEPHrine 0.3 MG, CLONIDINE... IRR SCH; +DEXAMETHASONE 2 MG TAB PO SCH; +GABAPENTIN 300 MG CAP PO SCH; +HYDR-3980 PO; +LACTATED RINGER'S 1,000 ML IV ONE; +NAPR500T8 PO; -OMEP20CA16 PO; +TRANEXAMIC ACID 1GM/100ML(PMX) 100 ML IVPB SCH; +VANCOMYCIN 1 GM (PMX) 250 ML IVPB SCH
[2018-10-06] MEDS ORDERED: ATOR40TA68 PO (10:19)
[2018-10-06] MEDS ORDERED: OMEG1CAP17 PO (10:22)
[2018-10-06] MEDS ORDERED: DOXY100T20 PO (11:00)
--- NOTE | 2018-10-06 13:08 | PREAC ---
Date/Time of Note Date/Time of Note DATE: 10/06/18 TIME: 12:48 Anesthesia Eval and Record Evaluation Time Pre-Procedure Interview DATE: 10/06/18 TIME: 12:48 Age 67 Sex male NPO: 8 hrs Preoperative diagnosis Left Shoulder Rotator Cuff Tear Planned procedure Left Shoulder Arthroscopy and Rotator Cuff Repair and Acromioplasty and Distal Clavicle Excision, Biceps Tenodesis Past Medical History Past Medical History: Includes Cardio: HTN, Dyslipidemia, CABG (and AVR) GI: GERD Surgery & Anesthesia Issues No known issue Meds Anticoagulation: No Beta Wale within 24 hr: Yes Reported Medications Doxycycline Hyclate* (Doxycycline Hyclate*) 100 Mg Tablet.dr, 100 MG PO BID, TAB STARTED 09-30-18 FOR 5 DAYS 10/06/18 [place]-3 Fatty Acids/Fish Oil (Fish Oil 1,000 mg Softgel) 1 Each Capsule, 1 EACH PO DAILY, CAP 10/06/18 Atorvastatin* (Atorvastatin*) 40 Mg Tablet, 40 MG PO QHS, #30 TAB 10/06/18 Naproxen* (Naproxen EC*) 500 Mg Tablet.dr, 500 MG PO TID, TAB 09/30/18 Hydrocodone/Acetaminophen ([place] 10-325 Tablet) 1 Each Tablet, 1 EACH PO prn, TAB 09/30/18 Aspirin (Low Dose Aspirin) 81 Mg Tablet.dr, 81 MG PO DAILY, #30 TAB 04/08/17 Tamsulosin Hcl* (Tamsulosin Hcl*) 0.4 Mg Cap.er.24h, 0.4 MG PO HS, CAP 04/08/17 Amlodipine Besylate* (Norvasc*) 5 Mg Tablet, 5 MG PO DAILY, TAB 04/08/17 Discontinued Reported Medications Omeprazole* (Omeprazole*) 20 Mg Capsule.dr, 20 MG PO DAILY, #30 CAP 04/08/17 Atenolol* (Atenolol*) 25 Mg Tablet, 25 MG PO DAILY, #30 TAB 04/08/17 Current Medications Tranexamic Acid 100 ml @ 200 mls/hr Pre-op IVPB ; Start 10/06/18 at 06:30; Stop 10/06/18 at 18:00 Bupivacaine HCl/ Morphine Sulfate/ Epinephrine/ Clonidine/Sodium Chloride/ Vancomycin HCl INTRA-OP IRR ; Start 10/06/18 at 06:30 Gabapentin (Neurontin) 300 mg ONCE PO Last administered on 10/06/18 11:18; Admin Dose 300 MG; Start 10/06/18 at 06:30; Stop 10/06/18 at 16:00 Dexamethasone (Decadron) 2 mg ONCE PO Last administered on 10/06/18at 11:18; Admin Dose 2 MG; Start 10/06/18 at 06:30; Stop 10/06/18 at 16:00 Vancomycin HCl 250 ml @ 125 mls/hr ONCE IVPB Last administered on 10/06/18:18; Admin Dose 125 MLS/HR; Start 10/06/18 at 06:30; Stop 10/06/18 at 16:00 Meds reviewed: Yes Allergies Coded Allergies: meloxicam (Verified Allergy, Intermediate, itchiness, flushed, rash, 10/06/18) Penicillins (Verified Allergy, Unknown, DONT KNOW REACTION, 10/06/18) Allergies Reviewed: Yes Labs/Studies Labs Reviewed: Reviewed by anesthesiologist test: N/A Studies: ECG (n/a), CXR (n/a) Pre-procedure Exam Last vitals Vital Signs Date Temp Pulse Resp B/P (MAP) Pulse Ox O2 O2 Flow FiO2 Time Delivery Rate 10/06/18 97.5 57 16 109/64 99 Room Air 09:21 (79) Airway: Adequate mouth opening, Adequate thyromental dist Mallampati: Mallampati II Teeth: Normal Lung: Normal Heart: Normal ASA Physical Status ASA physical status: 3 Emergency: None Planned Anesthetic General/MAC: ETT Nerve block: Brachial plexus (left) Planned Pain Management Single shot nerve block, Parenteral pain med Pre-operative Attestations Prior to commencing anesthesia and surgery, the patient was re-evaluated, there was verification of: *The patient's identity *The results of appropriate recent lab work and preoperative vital signs *The above evaluation not changing prior to induction *Anesthetic plan, risk benefits, alternative and complications discussed with patient/family; questions answered; patient/family understands, accepts and wishes to proceed. FRANSISCO TOVAR MD Oct 06, 2018 12:58
[2018-10-06] MEDS ORDERED: PROPOFOL 20 ML ONE (13:11)
[2018-10-06] MEDS ORDERED: ROCURONIUM 50 MG INJ ONE (13:11)
[2018-10-06] MEDS ORDERED: ROPIVACAINE 0.5 % 30 ML VIAL ONE (13:12)
[2018-10-06] MEDS ORDERED: MIDAZOLAM 1 MG/ML 2 ML INJ ONE (13:12)
[2018-10-06] MEDS ORDERED: FENTAnyl 50 MCG/ML VIAL ONE (13:12)
[2018-10-06] MEDS ORDERED: METOCLOPRAMIDE 10 MG INJ ONE (13:56)
[2018-10-06] MEDS ORDERED: KETOROLAC 30 MG INJ ONE (13:56)
[2018-10-06] MEDS ORDERED: ONDANSETRON 4 MG INJ ONE (13:56)
[2018-10-06] MEDS ORDERED: DEXAMETHASONE 4 MG/ML 5 ML INJ ONE (13:56)
[2018-10-06] MEDS ORDERED: PHENYLephrine (100 MCG/ML) 10ML SYG ONE (14:24)
[2018-10-06] MEDS ORDERED: EPHEDrine 25 MG/5 ML SYG ONE (14:24)
--- NOTE | 2018-10-06 14:45 | PDOCDIS ---
Discharge Instructions DIAGNOSIS Discharge Diagnosis Biceps tendon tear CONDITION [id number] Patient Condition: [id number] Good HOME CARE INSTRUCTIONS: [id number] Diet Instructions: [id number] Regular ACTIVITY: [id number] Activity Restrictions: [id number] Slowly Increase Activity Keep Limb Elevated [id number] Bathing Restrictions: [id number] Shower FOLLOW UP/APPOINTMENTS Follow-up Plan 2 weeks in the office SCHOOL/WORK RELEASE May return to School/Work with: With Restrictions School/Work Release Comment: 5 pound tabletop usage for 6 weeks VICKY BARRERA MD Oct 06, 2018 14:45
[2018-10-06] MEDS ORDERED: SUGAMMADEX SODIUM 200 MG/2 ML VIAL IV ONE (14:49)
--- NOTE | 2018-10-06 15:04 | PAC ---
Date/Time of Note Date/Time of Note DATE: 10/06/18 TIME: 15:03 Post-Anesthesia Notes Post-Anesthesia Note Last documented vital signs Vital Signs Date Temp Pulse Resp B/P (MAP) Pulse Ox O2 O2 Flow FiO2 Time Delivery Rate 10/06/18 97.5 57 16 109/64 99 Room Air 15:21 (79) Activity: WNL Respiratory function: WNL Cardiovascular function: WNL Mental status: Baseline Pain reasonably controlled: Yes Hydration appropriate: Yes Nausea/Vomiting absent: Yes FRANSISCO TOVAR MD Oct 06, 2018 15:04
[2018-10-06] MEDS ORDERED: MEPERIDINE 25 MG INJ IV PRN (15:30)
[2018-10-06] MEDS ORDERED: EPHEDrine 25 MG/5 ML SYG IV PRN (15:30)
[2018-10-06] MEDS ORDERED: OXYCODONE/ACETAMINOPHEN (5/325) TAB PO PRN (15:30)
[2018-10-06] MEDS ORDERED: METOCLOPRAMIDE 10 MG INJ IV PRN (15:30)
[2018-10-06] MEDS ORDERED: ONDANSETRON 4 MG INJ IV PRN (15:30)
[2018-10-06] MEDS ORDERED: hydrALAzine 20 MG INJ IV PRN (15:30)
[2018-10-06] MEDS ORDERED: LABETALOL HCL 20MG INJ IV PRN (15:30)
[2018-10-06] MEDS ORDERED: DIPHENHYDRAMINE 50 MG INJ IV PRN (15:30)
[2018-10-06] MEDS ORDERED: HYDROmorphONE 1 MG/5 ML IV SYRINGE IV PRN ×3 (15:30)
[2018-10-06] MEDS ORDERED: KETOROLAC 15 MG INJ IV PRN (15:30)
[2018-10-06] MEDS ORDERED: FENTAnyl 50 MCG/ML VIAL IV PRN ×3 (15:30)
== END 2018-10-06 16:35 | disposition home or self-care (01) ==
LOC: SDS 07:51
PROVIDERS: ATTEND Orthopaedic Surgery
DX: S46.212D Strain of muscle, fascia and tendon of other parts of biceps, left arm, subsequent encounter (principal); X58.XXXD Exposure to other specified factors, subsequent encounter; M19.012 Primary osteoarthritis, left shoulder; S43.402D Unspecified sprain of left shoulder joint, subsequent encounter; I10 Essential (primary) hypertension; E78.5 Hyperlipidemia, unspecified; Z79.82 Long term (current) use of aspirin
CPT/HCPCS: 29823; 29824; 29828; J0171; J0735; J1100; J1885; J2250; J2274; J2370; J2405; J2765; J2795; J3010; J3370